=== PATIENT | female | born 1940 | race Caucasian/White ===

== ENCOUNTER 2022-11-29 10:24 | Outpatient (RCR) | payer SELFPAY | END 2023-11-29 16:25 | disposition home or self-care (01) | LOC: MOW 10:24 | PROVIDERS: PCP Family Medicine; Visit Provider Family Medicine | DX: Z76.0 Encounter for issue of repeat prescription (principal) | CPT/HCPCS: S5170 ==

== ENCOUNTER 2023-02-02 11:31 | Emergency (ER) | payer MEDICARE, BC, SELFPAY ==
[2023-02-02 11:42] VITALS: BP 160/71; PULSE 63; RESP 16; TEMP 36.3; O2SAT 98; BMI 32.5
--- NOTE | 2023-02-02 12:10 | ED.GENADULT ---
HPI - General Adult General Date Seen: 02/02/23 Chief complaint: Neuro Symptoms/Altered Deficit Stated complaint: weakness in upper left arm Time Seen by Provider: 02/02/23 11:34 Source: patient and family Mode of arrival: ambulatory Limitations: no limitations History of Present Illness HPI narrative: Patient is a very pleasant 83-year-old woman here with her daughter for evaluation of some intermittent weakness in her left upper arm. She has associated pain in her medial axilla, it is somewhat tender to push there although she does not feel any swelling or masses. She says that over the past week she has had difficulty putting on her bra on the usual way, fastening it behind her, and difficulty reaching for her seatbelt because she gets pain in that region. She also finds sometimes that the upper arm does not cooperate when she goes to pick something up. Right now she is not having as much trouble, but sometimes it is worse. She does not have problems with the distal arm, wrist, hand. Symptoms have been present for about a week, waxing and waning, not otherwise changing. They called the nurse line today and were advised to come in to rule out stroke. She denies trauma, fevers, difficulty breathing, cough are history of similar symptoms. No sensory changes. Related Data Home Medications Medication Instructions Recorded Confirmed buspirone 5 mg tablet 5 mg PO DAILY 02/02/23 02/02/23 citalopram 10 mg tablet 10 mg PO DAILY 02/02/23 02/02/23 furosemide 20 mg tablet 20 mg PO DAILY 02/02/23 02/02/23 losartan 25 mg tablet 25 mg PO DAILY 02/02/23 02/02/23 potassium chloride 8 mEq 8 meq PO DAILY 02/02/23 02/02/23 tablet,extended release pravastatin 40 mg tablet 40 mg PO DAILY 02/02/23 02/02/23 propranolol 20 mg tablet 20 mg PO BID 02/02/23 02/02/23 trazodone 50 mg tablet 25 mg PO QPM PRN 02/02/23 02/02/23 Allergies Allergy/AdvReac Type Severity Reaction Status Date / Time No Known Drug Allergies Allergy Verified 02/02/23 11:46 Review of Systems Status of ROS: Reports: 10 or more systems reviewed and unremarkable except as noted in History and below PFSH PFS Social History Smoking Status: Never smoker How often do you have a drink containing alcohol: never AUDIT-C Alcohol total score: 0 Non-prescribed substance use: denies use Exam Narrative: Exam Narrative: Vital signs as noted above. In general, an alert, well-appearing Elderly woman. Head: Normocephalic, atraumatic. Eyes: Pupils are equal reactive. Extraocular movements are full. Conjunctivae are normal. ENT: Mucous membranes are moist. Throat is normal. Neck: Supple without lymphadenopathy. Heart: Regular rate and rhythm. No murmur or rub. Lungs: Clear bilaterally. No increased work of breathing, crackles or wheezes. She has some tenderness over the lateral chest wall and axilla on the left, but I do not see any swelling or erythema, I do not feel any masses. Abdomen: Soft and nontender. No organomegaly. Extremities: Well perfused. No edema. No calf tenderness. Pulses intact. She has some limited internal rotation of the left shoulder secondary to pain, otherwise range of motion is full. Neurologic: Patient is alert and oriented to person and place. Speech is fluent. Face is symmetric. She has 5 of 5 strength throughout both upper extremities with the exception of deltoid function on the left which is just slightly weak compared to the right, but she is able to keep the arm up against resistance. Sensation is intact throughout. Bilateral lower extremities are normal. Affect: Normal. Skin: Warm and dry. Well perfused. Const: Vital Signs, click to edit/add: Vital Signs - 24 hr 02/02/23 11:42 Temperature 97.4 F L Pulse Rate [Left P ulse Oximeter] 63 Respiratory Rate 16 Blood Pressure [Ri ght Upper Arm] 160/71 H Pulse Oximetry 98 Oxygen Delivery Me thod Room Air Documenting provider has reviewed patient's vital signs: yes Course Course Hospital Course: Based on her symptoms and exam, I am not significantly suspicious of stroke as a cause for her symptoms. She has waxing and waning symptoms, with her only exam finding being that of very minimal weakness of the deltoid. This seems more likely to be related possibly to something going on the brachial plexus or peripheral nerves. I offered a CT scan of the chest to evaluate for anything that might be visible causing problems, but she would prefer to wait until she sees her primary doctor next week. Overall I think that is reasonable. Discussed reasons to come back, for instance if symptoms are worsening or she has new symptoms such as swelling, fever, severe pain, difficulty breathing etcetera. She and her daughter comfortable with that plan. Vital Signs Vital signs: Initial Vital Signs Temperature 97.4 F L 02/02/23 11:42 Temperature Source Temporal Artery Scan 02/02/23 11:42 Pulse Rate 63 02/02/23 11:42 Respiratory Rate 16 02/02/23 11:42 Blood Pressure 160/71 H 02/02/23 11:42 Blood Pressure Mean 100 02/02/23 11:42 Blood Pressure Position Sitting 02/02/23 11:42 Pulse Oximetry 98 02/02/23 11:42 Oxygen Delivery Method Room Air 02/02/23 11:42 Vital Signs Temperature 97.4 F L 02/02/23 11:42 Pulse Rate 63 02/02/23 11:42 Respiratory Rate 16 02/02/23 11:42 Blood Pressure 160/71 H 02/02/23 11:42 Pulse Oximetry 98 02/02/23 11:42 Oxygen Delivery Method Room Air 02/02/23 11:42 Temperature 97.4 F L 02/02/23 11:42 Pulse Rate 63 02/02/23 11:42 Respiratory Rate 16 02/02/23 11:42 Blood Pressure 160/71 H 02/02/23 11:42 Pulse Oximetry 98 02/02/23 11:42 Oxygen Delivery Method Room Air 02/02/23 11:42 Discharge Plan Discharge Clinical Impression: Muscle weakness of left upper extremity Patient Disposition: Home, Self-Care Condition: Stable Additional Instructions: follow-up with Dr. Quiñones this coming week as planned. If at any time you feel that symptoms are worsening, have more diffuse weakness, worsening pain, swelling, fevers, difficulty breathing or other acute changes, return to the emergency department. Prescriptions: No Action buspirone 5 mg tablet 5 mg PO DAILY trazodone 50 mg tablet 25 mg PO QPM PRN pravastatin 40 mg tablet 40 mg PO DAILY citalopram 10 mg tablet 10 mg PO DAILY potassium chloride 8 mEq tablet extended release 8 meq PO DAILY losartan 25 mg tablet 25 mg PO DAILY furosemide 20 mg tablet 20 mg PO DAILY propranolol 20 mg tablet 20 mg PO BID Follow Up/Referrals: Kerwin Quiñones MD [Primary Care Provider] - Stand Alone Forms: [facility] Info Instructions
== END 2023-02-02 12:38 | disposition home or self-care (01) ==
LOC: ED 12:29
PROVIDERS: Emergency Provider Emergency Medicine; PCP Family Medicine
DX: M62.81 Muscle weakness (generalized) (principal)
CPT/HCPCS: 99283; 99284

== ENCOUNTER 2023-10-30 18:12 | Observation (INO) | payer MEDICARE, BC, SELFPAY ==
[2023-10-30] VITALS (14 sets, daily range): BP systolic 136–183; BP diastolic 59–89; PULSE 67–78; RESP 18; TEMP 36.4–36.6; O2SAT 91–100; BMI 29.9; BMI 30.8
--- NOTE | 2023-10-30 19:47 | CT_ITS ---
Patient: ISABEL BOB Facility:?[facility] Patient ID:?[id number] Site Patient ID:?[id number] Site :?[id number] Study:?CT-Head WITHOUT-10/30/2023 8:21:27 PM Ordering Physician:JEAN Final Report: INDICATIONS: Altered mental status. TECHNIQUE: CT head without contrast. COMPARISON: CT head without contrast 10/19/2012. FINDINGS: Ventricular catheter via a right frontal approach with tip terminating near the midline is again demonstrated. The tip of the shunt catheter is slightly retracted from the septum pellucidum since the comparison exam. Ventricular size has also slightly increased. Generalized volume loss is similar. Ill-defined low-attenuation in the periventricular and subcortical white matter is unchanged. No CT evidence of acute hemorrhage or infarction. No midline shift. No abnormal subdural collection. Intracranial atherosclerosis. Bone windows show no acute or suspicious osseous abnormality. Paranasal sinuses and orbits as imaged are unremarkable. IMPRESSION: 1. Ventricular catheter via a right frontal approach is similar in appearance but is no longer in contact with the septum pellucidum. Ventricular size has also slightly increased, concerning for possible shunt dysfunction. Correlation with more recent head CT may prove useful, if available. 2. No acute intracranial hemorrhage or midline shift. 3. Generalized cerebral atrophy and changes of chronic small vessel ischemic disease, as before. Dictated by Titus Berg MD @ 10/30/2023 8:39:02 PM Please note that all CT scans at this facility use dose modulation, iterative reconstruction, and/or weight-based dosing when appropriate to reduce radiation dose to as low as reasonably achievable. Dictated by: Titus Berg MD @ 10/30/2023 20:40:50 Signed by:?Titus Berg MD @10/30/2023 8:40:50 PM (Electronic Signature)
--- NOTE | 2023-10-30 20:01 | ED_ITS ---
HPI - General Adult General Date Seen: 10/30/23 Chief complaint: Weakness Stated complaint: Dizzy, weakness Time Seen by Provider: 10/30/23 19:37 Source: patient and family (Daughter) Mode of arrival: ambulatory Limitations: no limitations History of Present Illness HPI narrative: Patient is an 83-year-old female presenting to the emergency department for difficulty concentrating. She states all day she has been feeling like she has been having a brain fog. Can seem to concentrate or anything. Is having difficulty giving further description of her symptoms. Is having some mild dizz iness. Does states she has been feeling fatigued but has been walking around normally all day using her cane. Has not noticed any weakness at this time. Does states she feels fatigued though. The COVID test this morning that was negative. Does have some visual disturbances of the left eye but this is a chronic issue that has been gradually getting worse that she is seeing someone for. Has not noticed any acute changes today. Denies any falls or head injuries. Denies chest pain, shortness of breath, numbness, chest pain, shortness of breath, abdominal pain, dysuria, fevers, chills. She has had a shot for the past 20 years and has had no issues with it. Initially placed for hydrocephalus and was having an unsteady gait at that time. States these symptoms are different. Related Data Home Medications Medication Instructions Recorded Confirmed buspirone 5 mg tablet 5 mg PO DAILY 02/02/23 02/02/23 citalopram 10 mg tablet 10 mg PO DAILY 02/02/23 02/02/23 furosemide 20 mg tablet 20 mg PO DAILY 02/02/23 02/02/23 losartan 25 mg tablet 25 mg PO DAILY 02/02/23 02/02/23 potassium chloride 8 mEq 8 meq PO DAILY 02/02/23 02/02/23 tablet,extended release pravastatin 40 mg tablet 40 mg PO DAILY 02/02/23 02/02/23 propranolol 20 mg tablet 20 mg PO BID 02/02/23 02/02/23 trazodone 50 mg tablet 25 mg PO QPM PRN 02/02/23 02/02/23 Allergies Allergy/AdvReac Type Severity Reaction Status Date / Time No Known Drug Allergies Allergy Verified 02/02/23 11:46 Review of Systems Status of ROS: Reports: 10 or more systems reviewed and unremarkable except as noted in History and below [facility] Social History Smoking Status: Never smoker Do you use any of these nicotine containing products: None How often do you have a drink containing alcohol: never How often do you have six or more drinks on one occasion: Never AUDIT-C Alcohol total score: 0 Non-prescribed substance use: denies use service: No Exam Narrative: Exam Narrative: Const: Well-nourished, Well-developed, in no distress Eyes: PERRL, no conjunctival injection, and symmetrical lids HENT: Atraumatic external nose and ears. Moist mucous membranes. Neck: Symmetric, trachea midline, No thyromegaly. CVS: RRR, No murmurs or gallops. Peripheral pulses 2+ and equal in all extremities RESP: Unlabored respiratory effort. Clear to auscultation bilaterally. GI: Nontender/Nondistended, No rebound or guarding. MSK:Extremities w/o deformity, Normal Active ROM Skin: Warm, Dry. No rashes or lesions. Neuro: Normal Muscle tone, Cranial nerves 2-12 grossly intact, normal [id number], normal [id number], normal gait, normal strength 5/5 upper lower extremities bilaterally, normal sensation upper and lower extremities bilaterally, normal rapid alternating movements. Psych: Awake, Alert, & Oriented x3. Appropriate mood and affect. Const: Vital Signs, click to edit/add: Vital Signs - 24 hr 10/30/23 18:20 10/30/23 19:28 10/30/23 19:30 Temperature 97.9 F Pulse Rate 76 72 Respiratory Rate 18 Blood Pressure Blood Pressure [Ri ght Upper Arm] 169/74 H Pulse Oximetry 97 96 96 Oxygen Delivery Me thod Room Air 10/30/23 19:32 10/30/23 19:45 10/30/23 20:00 Temperature Pulse Rate 68 75 69 Respiratory Rate 18 Blood Pressure 161/68 H Blood Pressure [Ri ght Upper Arm] Pulse Oximetry 96 98 97 Oxygen Delivery Me thod Room Air 10/30/23 20:02 10/30/23 20:26 10/30/23 20:32 Temperature Pulse Rate 68 67 67 Respiratory Rate Blood Pressure 154/67 H 156/71 H Blood Pressure [Ri ght Upper Arm] Pulse Oximetry 97 97 100 Oxygen Delivery Me thod Course Vital Signs Vital signs: Initial Vital Signs Temperature 97.9 F 10/30/23 18:20 Temperature Source Temporal Artery Scan 10/30/23 18:20 Pulse Rhythm Regular 10/30/23 18:20 Respiratory Rate 18 10/30/23 18:20 Blood Pressure 169/74 H 10/30/23 18:20 Blood Pressure Mean 105 10/30/23 18:20 Blood Pressure Position Sitting 10/30/23 18:20 Pulse Oximetry 97 10/30/23 18:20 Oxygen Delivery Method Room Air 10/30/23 18:20 Vital Signs Temperature 97.9 F 10/30/23 18:20 Respiratory Rate 18 10/30/23 18:20 Blood Pressure 169/74 H 10/30/23 18:20 Pulse Oximetry 97 10/30/23 18:20 Oxygen Delivery Method Room Air 10/30/23 18:20 Temperature 97.9 F 10/30/23 18:20 Pulse Rate 67 10/30/23 20:32 Respiratory Rate 18 10/30/23 19:32 Blood Pressure 156/71 H 10/30/23 20:32 Pulse Oximetry 100 10/30/23 20:32 Oxygen Delivery Method Room Air 10/30/23 19:32 Medical Decision Making MDM Narrative Medical decision making narrative: Patient is an 83-year-old female presenting to the emergency department for some difficulty concentrating. She is having difficulty explaining exactly what her symptoms are but does seems like the main 1 is concentration at this time. She is not having any difficulty walking and is otherwise acting normal according to her daughter. 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 Was placed at [facility] she states. We will do a CT scan of her head along with this CBC, CMP, COVID/flu/RSV, magnesium, urinalysis, EKG, troponin. CBC, CMP showed no concerning abnormalities. COVID/flu/RSV is negative. Point of care troponin was elevated 0.09 so I will do a lab draw a troponin which came back at 0.08. EKG is not having any abnormalities on it per my review. She is not having any chest pain instead they are only symptoms still is the brain fog. CT scan of the head return with concerns about shunt dysfunction. I spoke to Dr. Fuentes of [facility] about this and told her what the final read said, the patient's symptoms, the comparison CT. At this time she does not think this is of concern and patient can follow-up outpatient for it. Due to the elevated troponin that we will admit her to the hospitalist service. Patient is agreeable to this plan. Lab Data Labs: Lab Results 10/30/23 10/30/23 10/30/23 Range/Units 19:55 20:20 20:36 WBC 7.84 (4.50-11.00) K/uL RBC 3.85 L (4.00-5.20) m/uL Hgb 11.8 L (12.0-16.0) gm/dL Hct 36.6 (33.0-51.0) % MCV 95 (80-100) fL MCH 31 (26-34) pg MCHC 32 (32-36) gm/dL RDW Coeff of Susan 13.0 (11.5-15.5) % Plt Count 266 (140-440) K/uL Neut % (Auto) 70.6 (42.0-72.0) % Lymph % (Auto) 16.3 L (20-44) % Candler % (Auto) 9.8 (0.0-11.0) % Eos % (Auto) 2.4 (0.0-7.0) % Baso % (Auto) 0.8 (0.0-3.0) % Neut # (Auto) 5.53 (1.7-7.0) K/uL Lymph # (Auto) 1.30 (0.90-2.90) K/uL Candler # (Auto) 0.80 (0.00-0.90) K/UL Eos # (Auto) 0.19 (0.00-0.50) K/uL Baso # (Auto) 0.06 (0.00-0.30) K/uL Abs Immat Gran (auto) 0.01 (0.00-0.30) K/uL Imm/Tot Granulo (auto) 0.1 % Sodium 135 (135-149) mmol/L Potassium 4.4 (3.6-5.1) mmol/L Chloride 105 (96-114) mmol/L Carbon Dioxide 24 (20-32) mmol/L Anion Gap 6 L (7-15) mEq/L BUN 38 H (7-30) mg/dL Creatinine 1.2 (0.5-1.5) mg/dL Estimated Creat Clear 25.86 Estimated GFR 44 ml/min Glucose 96 (60-115) mg/dL Calcium 9.7 (8.4-10.6) mg/dL Magnesium 2.1 (1.5-2.6) mg/dL Total Bilirubin 0.5 (0.1-1.5) mg/dL AST 27 (12-35) U/L ALT 18 (4-35) U/L Alkaline Phosphatase 70 (40-150) U/L Troponin I 0.08 H* (0.01-0.04) ng/mL Total Protein 7.1 (6.0-8.3) g/dL Albumin 4.3 (3.3-5.0) g/dL SARS-CoV-2 (PCR) Negative SARS-CoV-2 (Negative) Influenza Type A (PCR) Negative PCR FLU A (Negative) Influenza Type B (PCR) Negative PCR FLU B (Negative) RSV (PCR) Negative PCR RSV (Negative) Lab Acknowledgement Test Added POC Troponin I 0.09 H (0.01-0.04) ng/ml Imaging Data CT scan - head: Attestation: I have reviewed the pertinent imaging results. Radiologist's impression: 1. Ventricular catheter via a right frontal approach is similar in appearance but is no longer in contact with the septum pellucidum. Ventricular size has also slightly increased, concerning for possible shunt dysfunction. Correlation with more recent head CT may prove useful, if available. 2. No acute intracranial hemorrhage or midline shift. 3. Generalized cerebral atrophy and changes of chronic small vessel ischemic disease, as before. Dictated by Titus Berg MD @ 10/30/2023 8:39:02 PM Please note that all CT scans at this facility use dose modulation, iterative reconstruction, and/or weight-based dosing when appropriate to reduce radiation dose to as low as reasonably achievable. Dictated by: Titus Berg MD @ 10/30/2023 20:40:50 ECG Data Attestation: I personally reviewed and interpreted this ECG as follows: Prior ECG tracings: not available for review Interpretation: Normal sinus rhythm Lasix 9 beats per minute, normal intervals, normal axis, no ST or T-wave abnormalities. There are some says slightly inverted T-waves in lead III but this can be normal and did not have any comparisons. Discharge Plan Discharge Clinical Impression: Elevated troponin Patient Disposition: Admitted As Observation Condition: Stable
[2023-10-30 20:12] LABS: Basophils Absolute Auto 0.06 K/uL (0.00-0.30); Basophils Percent Auto 0.8 % (0.0-3.0); Eosinophils Absolute Auto 0.19 K/uL (0.00-0.50); Eosinophils Percent Auto 2.4 % (0.0-7.0); Hematocrit 36.6 % (33.0-51.0); Hemoglobin* 11.8 gm/dL (12.0-16.0); Immature Granulocytes Abs Auto 0.01 K/uL (0.00-0.30); Immature Granulocytes Pct Auto 0.1 %; Lymphocytes Percent Auto 16.3 % (20-44); Mean Corpuscular HGB Conc 32 gm/dL (32-36); Mean Corpuscular Hemoglobin 31 pg (26-34); Mean Corpuscular Volume 95 fL (80-100); Monocytes Percent Auto 9.8 % (0.0-11.0); Neutrophils Absolute Auto 5.53 K/uL (1.7-7.0); Neutrophils Percent Auto 70.6 % (42.0-72.0); Platelet Count* 266 K/uL (140-440); Red Blood Count 3.85 m/uL (4.00-5.20); Slide Review Reflex No; White Blood Count* 7.84 K/uL (4.50-11.00)
[2023-10-30 20:24] LABS: Albumin* 4.3 g/dL (3.3-5.0)
[2023-10-30 20:25] LABS: Chloride* 105 mmol/L (96-114); Potassium* 4.4 mmol/L (3.6-5.1); Sodium* 135 mmol/L (135-149)
[2023-10-30 20:26] LABS: Troponin, Point-of-Care* 0.09 ng/ml (0.01-0.04)
[2023-10-30 20:27] LABS: Anion Gap 6 mEq/L (7-15); Aspartate Amino Transferase* 27 U/L (12-35); Bilirubin Total* 0.5 mg/dL (0.1-1.5); Carbon Dioxide* 24 mmol/L (20-32); Creatinine* 1.2 mg/dL (0.5-1.5); Est. Creatinine Clearance* 25.86; Estimated Glomerular Filt Rate 44 ml/min; Total Protein* 7.1 g/dL (6.0-8.3)
[2023-10-30 20:28] LABS: Alanine Aminotransferase* 18 U/L (4-35); Alkaline Phosphatase* 70 U/L (40-150); Blood Urea Nitrogen* 38 mg/dL (7-30); Calcium* 9.7 mg/dL (8.4-10.6); Glucose* 96 mg/dL (60-115); Magnesium* 2.1 mg/dL (1.5-2.6)
[2023-10-30 21:00] LABS: Troponin I* 0.08 ng/mL (0.01-0.04)
[2023-10-30 21:04] LABS: PCR FLU A Negative PCR FLU A (Negative); PCR FLU B Negative PCR FLU B (Negative); PCR RSV Negative PCR RSV (Negative); SARS PCR* Negative SARS-CoV-2 (Negative)
--- NOTE | 2023-10-30 22:41 | P.IMHP_ITS ---
Hospitalist- H&P: HPI History of Present Illness Date Seen: 10/30/23 Chief complaint: Dizzy, weakness Narrative: Pily Sutherland is a 83 year old female who presented to the ER with her daughter Maribel this evening for brain fog. She is having a difficult time articulating symptoms, but overall feels like she's unable to concentrate. Mild dizziness but different than previous episodes of vertigo. Vision feels off without any specific focal symptoms or visual field deficits. Energy on the low side. No headache. History of idiopathic NPH; had shunt placed in 2001. Negative COVID test at home. No recent illness or falls. Tried Loratadine in case these were sinus symptoms, no relief. No chest pain or difficulty breathing. No concerning LE edema (didn't take her morning Lasix because she was feeling poorly). No recent changes in medication or concerns of medication errors. She and daughter both endorse recent stressors; Court is also prone to anxiety, but it typically doesn't manifest with these symptoms. ER Course and Findings: - Hgb 11.8 (outpatient baseline 11-12) - Creatinine 1.2 (outpatient baseline 1.3-1.5) - reportedly normal EKG, troponin 0.08 - concern for possible LAP C[employer]PER[employer] shunt malfunction on head CT; ER physician reviewed with [facility] who compared imaging, did not think symptoms were c/w shunt malfunction. Outpatient f/u recommended Given patient's elevated troponin and symptoms, Court is admitted for monitoring and therapy evaluations. Review of Systems Narrative: - no recent falls - no dysuria or polyuria - no headache - tried a Loratadine earlier today (thinking symptoms could be related to allergies), no relief - no chest pain - no dyspnea [facility] Medical History (Updated 10/30/23 @ 23:15 by Angely Prieto MD) Anxiety ?F41.9 - Anxiety disorder, unspecified (ICD-10) Dysthymia ?F34.1 - Dysthymic disorder (ICD-10) Idiopathic normal pressure hydrocephalus (INPH) ?G91.2 - (Idiopathic) normal pressure hydrocephalus (ICD-10) Colonic polyp ?K63.5 - Polyp of colon (ICD-10) Benign positional vertigo ?H81.10 - Benign paroxysmal vertigo, unspecified ear (ICD-10) Essential hypertension ?I10 - Essential (primary) hypertension (ICD-10) Heart failure with preserved ejection fraction ?I50.30 - Unspecified diastolic (congestive) heart failure (ICD-10) Hyperlipidemia ?E78.5 - Hyperlipidemia, unspecified (ICD-10) Osteopenia ?M85.80 - Other specified disorders of bone density and structure, unspecified site (ICD-10) Surgical History (Updated 10/30/23 @ 22:49 by Angely Prieto MD) H/O cataract extraction ?Z98.49 - Cataract extraction status, unspecified eye (ICD-10) S/P arthroscopic knee surgery ?Z98.890 - Other specified postprocedural states (ICD-10) H/O ventral hernia repair ?Z98.890 - Other specified postprocedural states (ICD-10) ?Z87.19 - Personal history of other diseases of the digestive system (ICD-10) H/O spinal fusion ?Z98.1 - Arthrodesis status (ICD-10) Family History (Updated 10/30/23 @ 23:16 by Angely Prieto MD) Mother Macular degeneration Social History (Updated 10/30/23 @ 23:17 by Angely Prieto MD) Narrative: Lives independently in a [facility] in [place]. Uses a walker and cane at home to ambulate. 4 adult children, daughter Maribel would be MDM if needed. Nonsmoker, no ETOH use. Requests DNR/DNI status. What is your current living situation?: I presently have a place to live Problems where you live: no known problems Problems where you live details: n/a In the past 12 months, utilities in danger of being shut off: no In past 12 months, lack of transportation kept you from medical appts, meetings, work, or getting things needed for daily living: no In the past 12 mos, have been you worried that your food would run out before you had money to buy more?: never true In the past 12 mos, the food you bought just didn't last and you didn't have money to buy more?: never true Smoking Status: Never smoker Do you use any of these nicotine containing products: None How often do you have a drink containing alcohol: never How often do you have six or more drinks on one occasion: Never AUDIT-C Alcohol total score: 0 Non-prescribed substance use: denies use Caffeine: Yes (Coffee and diet pepsi) How often does anyone, including family, friends and others, physically hurt you : never How often does anyone, including family, friends and others, insult or talk down to you: never How often does anyone, including family, friends and others, threaten you with harm: never How often does anyone, including family, friends and others, scream or curse at you: never service: No Meds Home Medications and Allergies Home Medications Medication Instructions Recorded Confirmed Type buspirone 5 mg tablet 2.5 mg PO BID 02/02/23 10/30/23 History citalopram 10 mg tablet 10 mg PO DAILY 02/02/23 10/30/23 History furosemide 20 mg tablet 20 mg PO DAILY PRN 02/02/23 10/30/23 History losartan 25 mg tablet 12.5 mg PO BID 02/02/23 10/30/23 History pravastatin 40 mg tablet 40 mg PO DAILY 02/02/23 10/30/23 History propranolol 20 mg tablet 20 mg PO BID 02/02/23 10/30/23 History trazodone 50 mg tablet 25 mg PO QPM PRN 02/02/23 10/30/23 History Home Medication Comments: - no recent medication changes - takes furosemide prn - self manages medications, no concern from patient nor family members regarding any recent mistakes or missed medications Allergies Allergy/AdvReac Type Severity Reaction Status Date / Time No Known Drug Allergies Allergy Verified 02/02/23 11:46 Exam Narrative: Exam Narrative: GEN: Alert and oriented HEENT: PERRL and EOMIs bilaterally, no scleral icterus. Normal ROM of neck, tongue protrudes midline CV: RRR, No concerning murmurs, no carotid bruits R: LCTA bilaterally without concerning wheezing, air movement adequate Ext: wwp, trace BLE edema Skin: No concerning skin lesions or rashes on exposed skin Neuro: No focal deficits while laying in bed. Moves extremities x4 appropriately with normal sensation Psych: Appropriate Const: Vital Signs, click to edit/add: Vital Signs - 24 hr 10/30/23 18:20 10/30/23 19:28 10/30/23 19:30 Temperature 97.9 F Pulse Rate 76 72 Pulse Rate [Left] Respiratory Rate 18 Blood Pressure Blood Pressure [Le ft Arm] Blood Pressure [Ri ght Upper Arm] 169/74 H Pulse Oximetry 97 96 96 Oxygen Delivery Me thod Room Air 10/30/23 19:32 10/30/23 19:45 10/30/23 20:00 Temperature Pulse Rate 68 75 69 Pulse Rate [Left] Respiratory Rate 18 Blood Pressure 161/68 H Blood Pressure [Le ft Arm] Blood Pressure [Ri ght Upper Arm] Pulse Oximetry 96 98 97 Oxygen Delivery Me thod Room Air 10/30/23 20:02 10/30/23 20:26 10/30/23 20:32 Temperature Pulse Rate 68 67 67 Pulse Rate [Left] Respiratory Rate Blood Pressure 154/67 H 156/71 H Blood Pressure [Le ft Arm] Blood Pressure [Ri ght Upper Arm] Pulse Oximetry 97 97 100 Oxygen Delivery Me thod 10/30/23 21:00 10/30/23 21:01 10/30/23 21:15 Temperature Pulse Rate 67 67 70 Pulse Rate [Left] Respiratory Rate Blood Pressure 161/73 H Blood Pressure [Le ft Arm] Blood Pressure [Ri ght Upper Arm] Pulse Oximetry 98 96 95 Oxygen Delivery Me thod 10/30/23 21:40 10/30/23 21:40 Temperature 97.5 F L Pulse Rate Pulse Rate [Left] 78 Respiratory Rate 18 18 Blood Pressure Blood Pressure [Le ft Arm] 183/89 H Blood Pressure [Ri ght Upper Arm] Pulse Oximetry 95 95 Oxygen Delivery Me thod Room Air Room Air Hospitalist - H&P: Result Labs Labs: Short CBC 10/30/23 Range/Units 19:55 WBC 7.84 (4.50-11.00) K/uL Hgb 11.8 L (12.0-16.0) gm/dL Hct 36.6 (33.0-51.0) % Plt Count 266 (140-440) K/uL BMP 10/30/23 19:55 Sodium 135 Potassium 4.4 Chloride 105 Carbon Dioxide 24 BUN 38 H Creatinine 1.2 Glucose 96 Calcium 9.7 Cardiac Enzymes 10/30/23 Range/Units 19:55 Troponin I 0.08 H* (0.01-0.04) ng/mL Liver Function 10/30/23 Range/Units 19:55 Total Bilirubin 0.5 (0.1-1.5) mg/dL AST 27 (12-35) U/L ALT 18 (4-35) U/L Alkaline Phosphatase 70 (40-150) U/L Albumin 4.3 (3.3-5.0) g/dL Assessment and Plan Assessment and plan (1) Brain fog: Problem comment: - ddx: URI, atypical vertigo, LAP [employer] shunt malfunction, physical manifestation of anxiety, atypical NSTEMI, CVA - [facility] consulted by phone form ED; felt that shunt was not malfunctioning and recommended outpatient f/u - reassuring labs and exam - consider MRI pending clinical course - therapies ordered to evaluate tomorrow morning Status: Acute (2) Elevated troponin: Problem comment: - ddx: CHF exacerbation, NSTEMI, related to CKD (baseline GFR in 30s per chart review) - clinically appears euvolemic - trend troponin, follow telemetry, continue home medications - repeat TTE Status: Acute (3) Heart failure with preserved ejection fraction: Problem comment: - follows with Dr. Phillips at [facility] 02/09/2022 Final Impressions: 1. Normal LV size, normal wall thickness, normal global systolic function with an estimated EF of 60 - 65%. 2. Right ventricular cavity size is mildly enlarged, global systolic RV function is normal. 3. The aortic valve is trileaflet and sclerotic, no stenosis and mild regurgitation. 4. The mitral valve is normal, mild mitral regurgitation. 5. Mild-moderate tricuspid regurgitation. 6. The inferior vena cava is dilated, respiratory size variation less than 50%. Status: Acute (4) Essential hypertension: Problem comment: - typically has age appropriate control on Lasix, Losartan BID - also on Propranolol (for h/o essential tremor, not noted on admission) Status: Acute (5) Idiopathic normal pressure hydrocephalus (INPH): Problem comment: - shunt placed 2001 Status: Acute Plan - per above - patient requests DNR/DNI status, unsure at this time if she would want transfer to higher level of care facility - daughter Maribel updated at bedside, questions answered
[2023-10-30 23:05] LABS: Appearance Urine Cloudy (Clear); Bilirubin Urine Negative (Negative); Blood Urine Negative (Negative); Color Urine Yellow (Yellow); Glucose Urine Negative (Negative); Ketones Urine Negative (Negative); Leukocyte Esterase Urine 1+ (Negative); Nitrite Urine Positive (Negative); Protein Urine Negative (Negative); Urobilinogen Urine 0.2 (0.2-1.0); pH Urine 6.5 (5.0-8.5)
[2023-10-30 23:09] LABS: Bacteria Urine Many; RBC Urine 0-2 (0-2); Squamous Epithelial Cell Urine Few (None-Few)
[2023-10-30 23:22] LABS: Troponin I* 0.07 ng/mL (0.01-0.04)
[2023-10-30] MEDS: TRAZODONE HCL 50 MG TABLET 25 MG PO (23:47)
[2023-10-31] MEDS: cefTRIAXone 1 GM in 0.9 % SODIUM CHLORIDE Mini-bag 100 ML IVPB (00:18)
[2023-10-31] MEDS: 0.9 % SODIUM CHLORIDE 250 ml IV (00:19)
[2023-10-31 02:11] VITALS: BP 133/78; PULSE 69; RESP 18; TEMP 36.4; O2SAT 91
--- NOTE | 2023-10-31 05:38 | PC.NURSE ---
Shift note: Pt is doing well. Ambulated with SBA using cane. Alert and oriented. Pt is pleasant and cooperated with treatment and care. No fever and pain reported. Due treatment and charted as ordered.
[2023-10-31 06:41] LABS: Basophils Absolute Auto 0.06 K/uL (0.00-0.30); Basophils Percent Auto 0.9 % (0.0-3.0); Eosinophils Absolute Auto 0.21 K/uL (0.00-0.50); Eosinophils Percent Auto 3.1 % (0.0-7.0); Hematocrit 34.2 % (33.0-51.0); Immature Granulocytes Abs Auto 0.02 K/uL (0.00-0.30); Immature Granulocytes Pct Auto 0.3 %; Lymphocytes Absolute Auto 1.41 K/uL (0.90-2.90); Lymphocytes Percent Auto 20.9 % (20-44); Mean Corpuscular HGB Conc 32 gm/dL (32-36); Mean Corpuscular Hemoglobin 31 pg (26-34); Mean Corpuscular Volume 95 fL (80-100); Monocytes Percent Auto 9.5 % (0.0-11.0); Neutrophils Absolute Auto 4.41 K/uL (1.7-7.0); Neutrophils Percent Auto 65.3 % (42.0-72.0); Platelet Count* 259 K/uL (140-440); RDW Coefficient of Variation % 13.1 % (11.5-15.5); Red Blood Count 3.59 m/uL (4.00-5.20); White Blood Count* 6.75 K/uL (4.50-11.00)
[2023-10-31 06:48] LABS: Slide Review Reflex No
[2023-10-31 07:00] VITALS: BP 147/63; PULSE 76; RESP 18; TEMP 37.2; O2SAT 96
[2023-10-31 07:00] LABS: Chloride* 107 mmol/L (96-114); Sodium* 136 mmol/L (135-149)
[2023-10-31 07:01] LABS: Potassium* 4.1 mmol/L (3.6-5.1)
[2023-10-31 07:03] LABS: Creatinine* 1.1 mg/dL (0.5-1.5); Est. Creatinine Clearance* 39.92; Estimated Glomerular Filt Rate 49 ml/min
[2023-10-31 07:04] LABS: Anion Gap 3 mEq/L (7-15); Blood Urea Nitrogen* 30 mg/dL (7-30); Calcium* 9.3 mg/dL (8.4-10.6); Carbon Dioxide* 26 mmol/L (20-32); Glucose* 87 mg/dL (60-115)
[2023-10-31 07:12] LABS: Troponin I* 0.06 ng/mL (0.01-0.04)
[2023-10-31 07:15] VITALS: PULSE 71
[2023-10-31] MEDS: PRAVASTATIN SODIUM 20 MG TABLET 40 MG PO (08:41)
[2023-10-31] MEDS: CITALOPRAM HYDROBROMIDE 20 MG TABLET 10 MG PO (08:41)
[2023-10-31] MEDS: LOSARTAN POTASSIUM 50 MG TABLET 12.5 MG PO (08:42)
[2023-10-31] MEDS: ACETAMINOPHEN 325 MG TABLET 975 MG PO (08:42)
[2023-10-31] MEDS: PROPRANOLOL 20 MG TABLET PO (08:43)
[2023-10-31] MEDS: BUSPIRONE 10 MG TABLET 2.5 MG PO (08:43)
[2023-10-31] MEDS: SODIUM CHLORIDE 0.9 % (FLUSH) 10 ML SYRINGE 5 ML IVF (08:44)
--- NOTE | 2023-10-31 10:33 | PM.DS1 ---
DS: Providers Provider Date Seen: 10/31/23 Date of admission: 10/30/23 21:31 Primary care physician: Kerwin Quiñones MD Admitting Clinician: Joyce Martin MD Consults: 10/30/23 22:36 Consult to Physical Therapy [CONS] Routine Comment: Reason(s) for PT Consult:: Evaluate and Treat Any Restrictions?:: No Restrictions Consult to [facility] [CONS] Routine Comment: Reason for Consult:: Discharge Planning Needs 10/30/23 22:38 Consult to Occupational Therapy [CONS] Routine Comment: Reason(s) for OT Consult:: Evaluate and Treat Any Restrictions?:: No Restrictions Attending Physician on discharge: SARIAH Heredia, JANEC [facility] Date of Discharge: 10/31/23 DS: Diagnosis Discharge Diagnosis (1) Brain fog: Status: Resolved Problem details: Resolved prior to discharge Differential diagnoses included UTI, atypical vertigo, MOLDER PUNCH shunt malfunction, physical manifestation of anxiety, atypical NSTEMI, CVA - [facility] consulted by phone from ED; felt that shunt was not malfunctioning and recommended outpatient f/u. PT/OT consulted, no further acute therapies recommended, patient had returned to baseline prior to discharge to home. (2) UTI (urinary tract infection): Status: Acute Problem details: UA cloudy, positive nitrite,1+ LE, many bacteria. UC pending on day of discharge Initiated on ceftriaxone, transition to oral cefdinir on discharge (3) Elevated troponin: Status: Acute Problem details: Differential diagnoses included CHF exacerbation, NSTEMI, related to CKD (baseline GFR in 30s per chart review). Clinically appeared euvolemic. EKG read with inverted T-waves. Her troponins down trended, telemetry unremarkable. Previous echo 2021. Will need outpatient follow-up with PCP and echocardiogram (4) Heart failure with preserved ejection fraction: Status: Acute Problem details: - follows with Dr. Phillips at [facility] 02/09/2022 Final Impressions: 1. Normal LV size, normal wall thickness, normal global systolic function with an estimated EF of 60 - 65%. 2. Right ventricular cavity size is mildly enlarged, global systolic RV function is normal. 3. The aortic valve is trileaflet and sclerotic, no stenosis and mild regurgitation. 4. The mitral valve is normal, mild mitral regurgitation. 5. Mild-moderate tricuspid regurgitation. 6. The inferior vena cava is dilated, respiratory size variation less than 50%. (5) Essential hypertension: Status: Acute Problem details: - typically has age appropriate control on Lasix, Losartan BID - also on Propranolol (for h/o essential tremor, not noted on admission) (6) Idiopathic normal pressure hydrocephalus (INPH): Status: Acute Problem details: - shunt placed 2001 DS: Summary Hospital Course Hospital Course: [age] year old female past medical history significant for hypertension, heart failure with preserved ejection fraction, idiopathic normal pressure hydrocephalus status post MOLDER PUNCH shunt was admitted to the medical floor for further management suspected UTI. Course of care and details as noted above. Patient was initiated on ceftriaxone, transitioned to oral cefdinir on day of discharge. Urine culture pending. Will need outpatient follow-up with PCP and repeat echocardiogram for further workup elevated troponins. Will need outpatient neurology follow-up for MOLDER PUNCH shunt. Remainder of chronic medical comorbidities were monitored and managed with home medications. Status at Discharge Functional status at discharge: uses cane/walker Overall status at discharge: patient is back to baseline Time Spent with Patient Time attestation: Total time spent providing and/or coordinating discharge services: Time spent: Greater than 30 minutes Exam Narrative: Exam Narrative: PHYSICAL EXAM General: Pleasant, conversant, NAD Cardiovascular: RRR Pulmonary: No dyspnea Neurological: Alert, answering questions appropriately Skin: Warm, dry. Const: Vital Signs, click to edit/add: Vital Signs - 24 hr 10/30/23 18:20 10/30/23 19:28 10/30/23 19:30 Temperature 97.9 F Pulse Rate 76 72 Pulse Rate [Left] Respiratory Rate 18 Blood Pressure Blood Pressure [Le ft Arm] Blood Pressure [Ri ght Upper Arm] 169/74 H Pulse Oximetry 97 96 96 Oxygen Delivery Me thod Room Air 10/30/23 19:32 10/30/23 19:45 10/30/23 20:00 Temperature Pulse Rate 68 75 69 Pulse Rate [Left] Respiratory Rate 18 Blood Pressure 161/68 H Blood Pressure [Le ft Arm] Blood Pressure [Ri ght Upper Arm] Pulse Oximetry 96 98 97 Oxygen Delivery Me thod Room Air 10/30/23 20:02 10/30/23 20:26 10/30/23 20:32 Temperature Pulse Rate 68 67 67 Pulse Rate [Left] Respiratory Rate Blood Pressure 154/67 H 156/71 H Blood Pressure [Le ft Arm] Blood Pressure [Ri ght Upper Arm] Pulse Oximetry 97 97 100 Oxygen Delivery Me thod 10/30/23 21:00 10/30/23 21:01 10/30/23 21:15 Temperature Pulse Rate 67 67 70 Pulse Rate [Left] Respiratory Rate Blood Pressure 161/73 H Blood Pressure [Le ft Arm] Blood Pressure [Ri ght Upper Arm] Pulse Oximetry 98 96 95 Oxygen Delivery Me thod 10/30/23 21:40 10/30/23 21:40 10/30/23 23:00 Temperature 97.5 F L Pulse Rate Pulse Rate [Left] 78 73 Respiratory Rate 18 18 18 Blood Pressure Blood Pressure [Le ft Arm] 183/89 H Blood Pressure [Ri ght Upper Arm] Pulse Oximetry 95 95 [facility] Room Air 10/30/23 23:00 10/30/23 23:00 10/30/23 23:00 Temperature 97.5 F L Pulse Rate 74 Pulse Rate [Left] 73 Respiratory Rate 18 18 Blood Pressure Blood Pressure [Le ft Arm] 136/59 L Blood Pressure [Ri ght Upper Arm] Pulse Oximetry 91 91 [facility]xygen [facility] Room Air 10/31/23 02:11 10/31/23 07:00 10/31/23 07:00 Temperature 97.5 F L 99.0 F Pulse Rate Pulse Rate [Left] 69 76 76 Respiratory Rate 18 18 18 Blood Pressure Blood Pressure [Le ft Arm] 133/78 147/63 H Blood Pressure [Ri ght Upper Arm] Pulse Oximetry 91 96 [facility] Room Air 10/31/23 07:00 Temperature Pulse Rate Pulse Rate [Left] Respiratory Rate 18 Blood Pressure Blood Pressure [Le ft Arm] Blood Pressure [Ri ght Upper Arm] Pulse Oximetry 96 Oxygen Delivery Me od Room Air DS: Data Data Completed and Pending Completed studies during hospitalization: CT head without contrast 10/19/2012. FINDINGS: Ventricular catheter via a right frontal approach with tip terminating near the midline is again demonstrated. The tip of the shunt catheter is slightly retracted from the septum pellucidum since the comparison exam. Ventricular size has also slightly increased. Generalized volume loss is similar. Ill-defined low-attenuation in the periventricular and subcortical white matter is unchanged. No CT evidence of acute hemorrhage or infarction. No midline shift. No abnormal subdural collection. Intracranial atherosclerosis. Bone windows show no acute or suspicious osseous abnormality. Paranasal sinuses and orbits as imaged are unremarkable. IMPRESSION: 1. Ventricular catheter via a right frontal approach is similar in appearance but is no longer in contact with the septum pellucidum. Ventricular size has also slightly increased, concerning for possible shunt dysfunction. Correlation with more recent head CT may prove useful, if available. 2. No acute intracranial hemorrhage or midline shift. 3. Generalized cerebral atrophy and changes of chronic small vessel ischemic disease, as before. Pending studies at discharge: Urine culture Labs on day of discharge: Labs from last 24 hours 10/31/23 10/30/23 10/30/23 06:08 22:50 22:40 WBC 6.75 RBC 3.59 L Hgb 11.0 L Hct 34.2 MCV 95 MCH 31 MCHC 32 RDW Coeff of Susan 13.1 Plt Count 259 Neut % (Auto) 65.3 Lymph % (Auto) 20.9 Isabela % (Auto) 9.5 Eos % (Auto) 3.1 Baso % (Auto) 0.9 Neut # (Auto) 4.41 Lymph # (Auto) 1.41 Isabela # (Auto) 0.60 Eos # (Auto) 0.21 Baso # (Auto) 0.06 Abs Immat Gran (auto) 0.02 Imm/Tot Granulo (auto) 0.3 Sodium 136 Potassium 4.1 Chloride 107 Carbon Dioxide 26 Anion Gap 3 L BUN 30 Creatinine 1.1 Estimated Creat Clear 39.92 Estimated GFR 49 Glucose 87 Calcium 9.3 Magnesium Total Bilirubin AST ALT Alkaline Phosphatase Troponin I 0.06 H* 0.07 H* Total Protein Albumin Urine Color Yellow Urine Appearance Cloudy A Urine pH 6.5 Ur Specific [place] 1.020 Urine Protein Negative Urine Glucose (UA) Negative Urine Ketones Negative Urine Blood Negative Urine Nitrite Positive A Urine Bilirubin Negative Urine Urobilinogen 0.2 Ur Leukocyte Esterase 1+ A Urine RBC 0-2 Urine WBC 10-25 A Ur Squamous Epith Cells Few Urine Bacteria Many A SARS-CoV-2 (PCR) Influenza Type A (PCR) Influenza Type B (PCR) RSV (PCR) Lab Acknowledgement POC Troponin I 10/30/23 10/30/23 10/30/23 20:36 20:20 19:55 WBC 7.84 RBC 3.85 L Hgb 11.8 L Hct 36.6 MCV 95 MCH 31 MCHC 32 RDW Coeff of Susan 13.0 Plt Count 266 Neut % (Auto) 70.6 Lymph % (Auto) 16.3 L Isabela % (Auto) 9.8 Eos % (Auto) 2.4 Baso % (Auto) 0.8 Neut # (Auto) 5.53 Lymph # (Auto) 1.30 Isabela # (Auto) 0.80 Eos # (Auto) 0.19 Baso # (Auto) 0.06 Abs Immat Gran (auto) 0.01 Imm/Tot Granulo (auto) 0.1 Sodium 135 Potassium 4.4 Chloride 105 Carbon Dioxide 24 Anion Gap 6 L BUN 38 H Creatinine 1.2 Estimated Creat Clear 25.86 Estimated GFR 44 Glucose 96 Calcium 9.7 Magnesium 2.1 Total Bilirubin 0.5 AST 27 ALT 18 Alkaline Phosphatase 70 Troponin I 0.08 H* Total Protein 7.1 Albumin 4.3 Urine Color Urine Appearance Urine pH Ur Specific [place] Urine Protein Urine Glucose (UA) Urine Ketones Urine Blood Urine Nitrite Urine Bilirubin Urine Urobilinogen Ur Leukocyte Esterase Urine RBC Urine WBC Ur Squamous Epith Cells Urine Bacteria SARS-CoV-2 (PCR) Negative SARS-CoV-2 Influenza Type A (PCR) Negative PCR FLU A Influenza Type B (PCR) Negative PCR FLU B RSV (PCR) Negative PCR RSV Lab Acknowledgement Test Added POC Troponin I 0.09 H Preliminary micro results at discharge 10/30/23 Unknown Urine Culture - Preliminary Urine,Clean Catch Culture in Progress Discharge Plan Discharge Disposition: Home, Self-Care Date of Admission: 10/30/23 21:31 Attending Provider on Discharge: Chandrika Juan Primary Care Provider: Kerwin Quiñones Condition: Stable Anticipated Discharge Date/Time: 10/31/23 10:26 Discharge Medications: New cefdinir 300 mg capsule 300 mg PO BID Qty: 10 0RF Continued buspirone 5 mg tablet 2.5 mg PO BID trazodone 50 mg tablet 25 mg PO QPM PRN pravastatin 40 mg tablet 40 mg PO DAILY citalopram 10 mg tablet 10 mg PO DAILY losartan 25 mg tablet 12.5 mg PO BID furosemide 20 mg tablet 20 mg PO DAILY PRN propranolol 20 mg tablet 20 mg PO BID Discharge Orders: Discharge Order (Routine); Ordered 10/31/23 Ordered By: Chandrika Juan Patient Education: Urinary Tract Infection in Older Adults (GEN), High Troponin Levels (GEN) Additional Instructions: Continue cefdinir for your urinary tract infection. A urine culture was pending on day of discharge. Your troponin level was elevated. You will need an outpatient echocardiogram and follow-up with your PCP. Neurology recommending outpatient follow-up for MOLDER PUNCH shunt. Activity Level: No Restrictions Discharge Diet: Regular Follow Up Appointments: Kerwin Quiñones MD [Primary Care Provider] - 11/08/23 (Post hospital follow-up, UTI. Will need outpatient echocardiogram and PCP follow-up for elevated troponins) Forms: [employer] Info Instructions
--- NOTE | 2023-10-31 11:18 | REH.OT ---
Orders received for OT eval and treat. Patient back to baseline and is discharging to home. No formal OT evaluation needed.
--- NOTE | 2023-10-31 11:29 | NUTR.NU ---
Nutrition screen initiated related to nursing referral for MST due to weight loss. Height 59, weight 149.1 lbs, BMI 30.8. 02/02/23 weight record 150 lbs. Patient admit with brain fog, UTI. Diet order regular with intake of 100% at breakfast. No nutrition concerns at this time. Monitor intake and follow up prn.
--- NOTE | 2023-10-31 14:43 | PC.NURSE ---
Discharge: Patient pleasant and cooperative, A&O. VSS, afebrile. SpO2 maintained above 90% on room air, LS CTA. Patient reported chronic moderate pain in her back, managed with Tylenol. Outpatient echo, and follow up appointment scheduled. IV D/C with tip intact. Discharge instructions provided verbally and written, all questions answered. Discharged at 1155 with daughter to home. ?
== END 2023-10-31 11:55 | disposition home or self-care (01) ==
LOC: ED 20:13 → MEDSURG 21:36
PROVIDERS: Family Medicine; Admitting Provider Family Medicine; Emergency Provider Student in an Organized Health Care Education/Training Program; PCP Family Medicine; Visit Provider Family Medicine
DX: R79.89 Other specified abnormal findings of blood chemistry (principal); N39.0 Urinary tract infection, site not specified; R41.89 Other symptoms and signs involving cognitive functions and awareness; I11.0 Hypertensive heart disease with heart failure; I50.30 Unspecified diastolic (congestive) heart failure; G91.2 (Idiopathic) normal pressure hydrocephalus; I07.1 Rheumatic tricuspid insufficiency; I34.0 Nonrheumatic mitral (valve) insufficiency; R42 Dizziness and giddiness; R53.83 Other fatigue; H53.9 Unspecified visual disturbance; F41.9 Anxiety disorder, unspecified; E78.5 Hyperlipidemia, unspecified; Z11.52 Encounter for screening for COVID-19; Z98.2 Presence of cerebrospinal fluid drainage device; Z98.1 Arthrodesis status; Z98.49 Cataract extraction status, unspecified eye; Z87.19 Personal history of other diseases of the digestive system; Z98.890 Other specified postprocedural states; Z66 Do not resuscitate
CPT/HCPCS: 36415; 70450; 80048; 80053; 81001; 83735; 84484; 85025; 87086; 87186; 87631; 93005; 96365; 96366; 97116; 97161; 99283; 99285; G0378; A9270; J0696; J7050

== ENCOUNTER 2023-11-03 14:31 | Emergency (ER) | payer MEDICARE, BC, SELFPAY ==
[2023-11-03 14:39] VITALS: BP 165/71; PULSE 61; RESP 18; TEMP 37.2; O2SAT 98; BMI 29.9
[2023-11-03 16:38] VITALS: O2SAT 98
--- NOTE | 2023-11-03 16:38 | CT_ITS ---
Patient: ISABEL BOB Facility:?[facility] Patient ID:?[id number] Site Patient ID:?[id number]. Site :?[id number] Study:?CT-Head WITHOUTT-11/03/2023 4:57:04 PM Ordering Physician:?DR. DAMICO Final Report: INDICATION: Confusion. COMPARISON: CT head without contrast October 19, 2012 and October 30, 2023. TECHNIQUE: CT head without intravenous contrast; coronal and sagittal reformats. FINDINGS: Hydrocephalus with ventricular shunt in place. Progression of hydrocephalus since 2012 and stable since October 30, 2003 no intracranial hemorrhage. No mass lesions. No evidence of shift of the midline structures. The calvarium is unremarkable. IMPRESSION: 1. Hydrocephalus with a ventricular shunt in place. 2. Progression of the hydrocephalus since 2012 and stable since October 30, 2023. Please note that all CT scans at this facility use dose modulation, iterative reconstruction, and/or weight-based dosing when appropriate to reduce radiation dose to as low as reasonably achievable. Dictated by Sobeida Galindo MD @ 11/03/2023 5:06:01 PM Signed by:?Sobeida Galindo MD @11/03/2023 5:06:01 PM (Electronic Signature)
[2023-11-03 17:15] LABS: Basophils Absolute Auto 0.05 K/uL (0.00-0.30); Basophils Percent Auto 0.6 % (0.0-3.0); Eosinophils Absolute Auto 0.14 K/uL (0.00-0.50); Eosinophils Percent Auto 1.8 % (0.0-7.0); Hematocrit 38.6 % (33.0-51.0); Hemoglobin* 12.3 gm/dL (12.0-16.0); Immature Granulocytes Abs Auto 0.01 K/uL (0.00-0.30); Immature Granulocytes Pct Auto 0.1 %; Lymphocytes Percent Auto 18.4 % (20-44); Mean Corpuscular HGB Conc 32 gm/dL (32-36); Mean Corpuscular Hemoglobin 30 pg (26-34); Mean Corpuscular Volume 94 fL (80-100); Monocytes Percent Auto 8.7 % (0.0-11.0); Neutrophils Percent Auto 70.4 % (42.0-72.0); Platelet Count* 296 K/uL (140-440); RDW Coefficient of Variation % 13.1 % (11.5-15.5); Red Blood Count 4.09 m/uL (4.00-5.20); White Blood Count* 7.82 K/uL (4.50-11.00)
[2023-11-03 17:20] LABS: Slide Review Reflex No
[2023-11-03 17:27] LABS: Chloride* 106 mmol/L (96-114); Potassium* 4.1 mmol/L (3.6-5.1); Sodium* 138 mmol/L (135-149)
[2023-11-03 17:30] LABS: Creatinine* 1.3 mg/dL (0.5-1.5); Est. Creatinine Clearance* 22.73; Estimated Glomerular Filt Rate 40 ml/min
[2023-11-03 17:31] LABS: Anion Gap 8 mEq/L (7-15); Blood Urea Nitrogen* 40 mg/dL (7-30); Calcium* 10.1 mg/dL (8.4-10.6); Carbon Dioxide* 24 mmol/L (20-32); Glucose* 93 mg/dL (60-115)
[2023-11-03 17:33] LABS: C Reactive Protein* 0.6 mg/dL (0.5-1.0)
--- NOTE | 2023-11-03 17:47 | ED_ITS ---
HPI - General Adult General Chief complaint: Unspecified Complaint, Adult Stated complaint: confusion, brain fog Time Seen by Provider: 11/03/23 15:54 Related Data Home Medications Medication Instructions Recorded Confirmed buspirone 5 mg tablet 2.5 mg PO BID 02/02/23 10/30/23 citalopram 10 mg tablet 10 mg PO DAILY 02/02/23 10/30/23 furosemide 20 mg tablet 20 mg PO DAILY PRN 02/02/23 10/30/23 losartan 25 mg tablet 12.5 mg PO BID 02/02/23 10/30/23 pravastatin 40 mg tablet 40 mg PO DAILY 02/02/23 10/30/23 propranolol 20 mg tablet 20 mg PO BID 02/02/23 10/30/23 trazodone 50 mg tablet 25 mg PO QPM PRN 02/02/23 10/30/23 Previous Rx's Medication Instructions Recorded cefdinir 300 mg capsule 300 mg PO BID #10 caps 10/31/23 Allergies Allergy/AdvReac Type Severity Reaction Status Date / Time No Known Drug Allergies Allergy Verified 02/02/23 11:46 [facility] Medical History (Updated 11/03/23 @ 19:36 by Natali Del Valle MD) Anxiety ?F41.9 - Anxiety disorder, unspecified (ICD-10) Dysthymia ?F34.1 - Dysthymic disorder (ICD-10) Idiopathic normal pressure hydrocephalus (INPH) ?G91.2 - (Idiopathic) normal pressure hydrocephalus (ICD-10) Colonic polyp ?K63.5 - Polyp of colon (ICD-10) Benign positional vertigo ?H81.10 - Benign paroxysmal vertigo, unspecified ear (ICD-10) Essential hypertension ?I10 - Essential (primary) hypertension (ICD-10) Heart failure with preserved ejection fraction ?I50.30 - Unspecified diastolic (congestive) heart failure (ICD-10) Hyperlipidemia ?E78.5 - Hyperlipidemia, unspecified (ICD-10) Osteopenia ?M85.80 - Other specified disorders of bone density and structure, unspecified site (ICD-10) Surgical History (Updated 10/30/23 @ 22:49 by Angely Prieto MD) H/O cataract extraction ?Z98.49 - Cataract extraction status, unspecified eye (ICD-10) S/P arthroscopic knee surgery ?Z98.890 - Other specified postprocedural states (ICD-10) H/O ventral hernia repair ?Z98.890 - Other specified postprocedural states (ICD-10) ?Z87.19 - Personal history of other diseases of the digestive system (ICD-10) H/O spinal fusion ?Z98.1 - Arthrodesis status (ICD-10) Family History (Updated 10/30/23 @ 23:16 by Angely Prieto MD) Mother Macular degeneration Social History (Updated 10/30/23 @ 23:17 by Angely Prieto MD) Narrative: Lives independently in a [facility] in [place]. Uses a walker and cane at home to ambulate. 4 adult children, daughter Maribel would be MDM if needed. Nonsmoker, no ETOH use. Requests DNR/DNI status. What is your current living situation?: I presently have a place to live Problems where you live: no known problems Problems where you live details: n/a In the past 12 months, utilities in danger of being shut off: no In past 12 months, lack of transportation kept you from medical appts, meetings, work, or getting things needed for daily living: no In the past 12 mos, have been you worried that your food would run out before you had money to buy more?: never true In the past 12 mos, the food you bought just didn't last and you didn't have money to buy more?: never true Smoking Status: Never smoker Do you use any of these nicotine containing products: None How often do you have a drink containing alcohol: never How often do you have six or more drinks on one occasion: Never AUDIT-C Alcohol total score: 0 Non-prescribed substance use: denies use Caffeine: Yes (Coffee and diet pepsi) How often does anyone, including family, friends and others, physically hurt you : never How often does anyone, including family, friends and others, insult or talk down to you: never How often does anyone, including family, friends and others, threaten you with harm: never How often does anyone, including family, friends and others, scream or curse at you: never service: No Exam Const: Vital Signs, click to edit/add: Vital Signs - 24 hr 11/03/23 14:39 11/03/23 18:37 Temperature 99.0 F Pulse Rate [Right Pulse Oximeter] 61 Respiratory Rate 18 Blood Pressure [Le ft Upper Arm] 165/71 H 175/80 H Pulse Oximetry 98 Oxygen Delivery Me thod Room Air Course Course ED Course: Workup was unremarkable today, including a UA. I did repeat a head CT to make sure there is no acute changes from her recent 1 and it was entirely stable. I did consult with Dr. Paul, at [facility] who stated that if there is no source of infection and no acute findings on CT then outpatient follow-up was appropriate with Neurology. Vital Signs Vital signs: Initial Vital Signs Temperature 99.0 F 11/03/23 14:39 Temperature Source Temporal Artery Scan 11/03/23 14:39 Pulse Rate 61 11/03/23 14:39 Pulse Rhythm Regular 11/03/23 14:39 Pulse Strength 3+ Normal 11/03/23 14:39 Respiratory Rate 18 11/03/23 14:39 Blood Pressure 165/71 H 11/03/23 14:39 Blood Pressure Mean 102 11/03/23 14:39 Blood Pressure Position Sitting 11/03/23 14:39 Pulse Oximetry 98 11/03/23 14:39 Oxygen Delivery Method Room Air 11/03/23 14:39 Vital Signs Temperature 99.0 F 11/03/23 14:39 Pulse Rate 61 11/03/23 14:39 Respiratory Rate 18 11/03/23 14:39 Blood Pressure 165/71 H 11/03/23 14:39 Pulse Oximetry 98 11/03/23 14:39 Oxygen Delivery Method Room Air 11/03/23 14:39 Temperature 99.0 F 11/03/23 14:39 Pulse Rate 61 11/03/23 14:39 Respiratory Rate 18 11/03/23 14:39 Blood Pressure 175/80 H 11/03/23 18:37 Pulse Oximetry 98 11/03/23 14:39 Oxygen Delivery Method Room Air 11/03/23 14:39 Medical Decision Making MDM Narrative Medical decision making narrative: Increasing confusion. Recommend outpatient neurologic follow-up. Medical Records Medical records reviewed: Yes I reviewed the patient's medical records Lab Data Lab results reviewed: Yes I reviewed the patient's lab results Labs: Lab Results 11/03/23 11/03/23 Range/Units 16:38 17:09 WBC 7.82 (4.50-11.00) K/uL RBC 4.09 (4.00-5.20) m/uL Hgb 12.3 (12.0-16.0) gm/dL Hct 38.6 (33.0-51.0) % MCV 94 (80-100) fL MCH 30 (26-34) pg MCHC 32 (32-36) gm/dL RDW Coeff of Susan 13.1 (11.5-15.5) % Plt Count 296 (140-440) K/uL Neut % (Auto) 70.4 (42.0-72.0) % Lymph % (Auto) 18.4 L (20-44) % [place] % (Auto) 8.7 (0.0-11.0) % Eos % (Auto) 1.8 (0.0-7.0) % Baso % (Auto) 0.6 (0.0-3.0) % Neut # (Auto) 5.50 (1.7-7.0) K/uL Lymph # (Auto) 1.40 (0.90-2.90) K/uL [place] # (Auto) 0.70 (0.00-0.90) K/UL Eos # (Auto) 0.14 (0.00-0.50) K/uL Baso # (Auto) 0.05 (0.00-0.30) K/uL Abs Immat Gran (auto) 0.01 (0.00-0.30) K/uL Imm/Tot Granulo (auto) 0.1 % Sodium 138 (135-149) mmol/L Potassium 4.1 (3.6-5.1) mmol/L Chloride 106 (96-114) mmol/L Carbon Dioxide 24 (20-32) mmol/L Anion Gap 8 (7-15) mEq/L BUN 40 H (7-30) mg/dL Creatinine 1.3 (0.5-1.5) mg/dL Estimated Creat Clear 22.73 Estimated GFR 40 ml/min Glucose 93 (60-115) mg/dL Calcium 10.1 (8.4-10.6) mg/dL C-Reactive Protein 0.6 (0.5-1.0) mg/dL Urine Color Yellow (Yellow) Urine Appearance Clear (Clear) Urine pH 5.5 (5.0-8.5) Ur Specific [place] 1.020 (1.000-1.030) Urine Protein Negative (Negative) Urine Glucose (UA) Negative (Negative) Urine Ketones 1+ A (Negative) Urine Blood Negative (Negative) Urine Nitrite Negative (Negative) Urine Bilirubin Negative (Negative) Urine Urobilinogen 0.2 (0.2-1.0) Ur Leukocyte Esterase Negative (Negative) Urine RBC 0-2 (0-2) Urine WBC 0-2 (0-5) Ur Squamous Epith Cells None (None-Few) Urine Bacteria None (None) Imaging Data CT scan - head: Attestation: I have reviewed the pertinent imaging results. Radiologist's impression: Study:?CT-Head WITHOUTT-11/03/2023 4:57:04 PM Ordering Physician:?DR. DEL VALLE Final Report: INDICATION: Confusion. COMPARISON: CT head without contrast October 19, 2012 and October 30, 2023. TECHNIQUE: CT head without intravenous contrast; coronal and sagittal reformats. FINDINGS: Hydrocephalus with ventricular shunt in place. Progression of hydrocephalus sin ce 2012 and stable since October 30, 2003 no intracranial hemorrhage. No mass lesions. No evidence of shift of the midline structures. The calvarium is unremarkable. IMPRESSION: 1. Hydrocephalus with a ventricular shunt in place. 2. Progression of the hydrocephalus since 2012 and stable since October 30, 2023. Discharge Plan Discharge Clinical Impression: Confusion Patient Disposition: Home, Self-Care Condition: Stable Additional Instructions: Your workup today did not reveal any evidence of infection, urine was looking clear. I do recommend you finish your antibiotics as prescribed. There was no changes on your head CT. Recommend outpatient evaluation with a neurologist. Prescriptions: No Action buspirone 5 mg tablet 2.5 mg PO BID trazodone 50 mg tablet 25 mg PO QPM PRN pravastatin 40 mg tablet 40 mg PO DAILY citalopram 10 mg tablet 10 mg PO DAILY losartan 25 mg tablet 12.5 mg PO BID furosemide 20 mg tablet 20 mg PO DAILY PRN propranolol 20 mg tablet 20 mg PO BID cefdinir 300 mg capsule 300 mg PO BID Qty: 10 0RF Follow Up/Referrals: Kerwin Quiñones MD [Primary Care Provider] - Stand Alone [facility] Info Instructions
[2023-11-03 18:37] VITALS: BP 175/80
[2023-11-03 18:58] LABS: Appearance Urine Clear (Clear); Bilirubin Urine Negative (Negative); Blood Urine Negative (Negative); Color Urine Yellow (Yellow); Glucose Urine Negative (Negative); Ketones Urine 1+ (Negative); Leukocyte Esterase Urine Negative (Negative); Nitrite Urine Negative (Negative); Protein Urine Negative (Negative); Urobilinogen Urine 0.2 (0.2-1.0); pH Urine 5.5 (5.0-8.5)
[2023-11-03 19:15] LABS: RBC Urine 0-2 (0-2); WBC Urine 0-2 (0-5)
== END 2023-11-03 19:54 | disposition home or self-care (01) ==
PROVIDERS: Emergency Provider Family Medicine; PCP Family Medicine
DX: R41.0 Disorientation, unspecified (principal)
CPT/HCPCS: 36415; 70450; 80048; 81001; 85025; 86140; 87086; 87493; 94761; 99284

== ENCOUNTER 2023-11-30 14:52 | Outpatient (RCR) | payer SELFPAY | END 2024-11-29 10:41 | disposition home or self-care (01) | LOC: MOW 14:52 | PROVIDERS: PCP Family Medicine; Visit Provider Family Medicine | DX: Z76.0 Encounter for issue of repeat prescription (principal) | CPT/HCPCS: S5170 ==

== ENCOUNTER 2024-02-02 12:08 | Outpatient (CLI) | payer MEDICARE, BC, SELFPAY | END 2024-02-02 12:09 | disposition home or self-care (01) | LOC: NFLDREF 02-03 13:02 | PROVIDERS: PCP Family Medicine; Referring Provider Family Medicine; Visit Provider Family Medicine | DX: N30.00 Acute cystitis without hematuria (principal); R42 Dizziness and giddiness | CPT/HCPCS: 87086; 87186 ==

== ENCOUNTER 2024-03-29 09:26 | Outpatient (CLI) | payer MEDICARE, BC, SELFPAY | END 2024-03-29 09:27 | disposition home or self-care (01) | LOC: AMB 04-01 00:47 | PROVIDERS: PCP Family Medicine; Visit Provider Emergency Medicine Emergency Medical Services | DX: R53.1 Weakness (principal) | CPT/HCPCS: A0998 ==

== ENCOUNTER 2024-04-03 11:44 | Emergency (ER) | payer MEDICARE, BC, SELFPAY ==
[2024-04-03] VITALS (12 sets, daily range): BP systolic 159–180; BP diastolic 70–74; PULSE 59–71; RESP 18; TEMP 37.2; O2SAT 97–99; BMI 31.1
--- NOTE | 2024-04-03 12:18 | ED_ITS ---
HPI - General Adult General Time Seen by Provider: 12:18 Date Seen: 04/03/24 Chief complaint: Diarrhea Stated complaint: weakness, diarrhea Time Seen by Provider: 04/03/24 12:17 Source: patient and RN notes reviewed Mode of arrival: ambulatory Limitations: no limitations History of Present Illness HPI narrative: This 84-year-old female is coming in with concern of prolonged diarrhea. It has been present for at least 10 days. She describes it as explosive in nature. There is no blood, no fevers. She has no history of C difficile colitis, there has been no travel, no known ill contacts. She has maybe had some cramping, notes her stomach is gurgly but no abdominal pain at this time. She notes that she has had to clean up the bathroom a lot, has not been able to make it to the toilet all the time due to the explosive nature of the diarrhea. There is no nausea or vomiting, is still eating. She has tried to avoid lactose in dairy to help with the diarrhea but it is not changed it. She is feeling lightheaded and unsteady due to her GI losses. She notes that she is losing weight with this, it is affecting her sleep. She does have a history of back to back UTIs where she did receive antibiotics but believes that that was back in October. She has had colonoscopy before, had a colon polyp removed historically. Denies any history of diverticulitis. Related Data Home Medications ?Medication ?Instructions ?Recorded ?Confirmed buspirone 5 mg tablet 2.5 mg PO BID 02/02/23 02/02/24 citalopram 10 mg tablet 10 mg PO DAILY 02/02/23 02/02/24 furosemide 20 mg tablet 20 mg PO DAILY PRN 02/02/23 02/02/24 losartan 25 mg tablet 12.5 mg PO BID 02/02/23 02/02/24 pravastatin 40 mg tablet 40 mg PO DAILY 02/02/23 02/02/24 propranolol 20 mg tablet 20 mg PO BID 02/02/23 02/02/24 trazodone 50 mg tablet 25 mg PO QPM PRN 02/02/23 02/02/24 donepezil 5 mg tablet mg PO QDAY 02/02/24 02/02/24 Allergies Allergy/AdvReac Type Severity Reaction Status Date / Time bee venom protein (honey bee) Allergy Mild Verified 04/03/24 12:03 Review of Systems Status of ROS: Reports: 6 or more systems reviewed and unremarkable except as noted in History and below [facility] Medical History Anxiety ?F41.9 - Anxiety disorder, unspecified (ICD-10) Dysthymia ?F34.1 - Dysthymic disorder (ICD-10) Idiopathic normal pressure hydrocephalus (INPH) ?G91.2 - (Idiopathic) normal pressure hydrocephalus (ICD-10) Colonic polyp ?K63.5 - Polyp of colon (ICD-10) Benign positional vertigo ?H81.10 - Benign paroxysmal vertigo, unspecified ear (ICD-10) Essential hypertension ?I10 - Essential (primary) hypertension (ICD-10) Heart failure with preserved ejection fraction ?I50.30 - Unspecified diastolic (congestive) heart failure (ICD-10) Hyperlipidemia ?E78.5 - Hyperlipidemia, unspecified (ICD-10) Osteopenia ?M85.80 - Other specified disorders of bone density and structure, unspecified site (ICD-10) Surgical History H/O cataract extraction ?Z98.49 - Cataract extraction status, unspecified eye (ICD-10) S/P arthroscopic knee surgery ?Z98.890 - Other specified postprocedural states (ICD-10) H/O ventral hernia repair ?Z98.890 - Other specified postprocedural states (ICD-10) ?Z87.19 - Personal history of other diseases of the digestive system (ICD-10) H/O spinal fusion ?Z98.1 - Arthrodesis status (ICD-10) Family History Mother Macular degeneration Social History Narrative: Lives independently in a [facility] in [place]. Uses a walker and cane at home to ambulate. 4 adult children, daughter Maribel would be MDM if needed. Nonsmoker, no ETOH use. Requests DNR/DNI status. What is your current living situation?: I presently have a place to live Problems where you live: no known problems Problems where you live details: n/a In the past 12 months, utilities in danger of being shut off: no In past 12 months, lack of transportation kept you from medical appts, meetings, work, or getting things needed for daily living: no In the past 12 mos, have been you worried that your food would run out before you had money to buy more?: never true In the past 12 mos, the food you bought just didn't last and you didn't have money to buy more?: never true Smoking Status: Never smoker Do you use any of these nicotine containing products: None How often do you have a drink containing alcohol: never How often do you have six or more drinks on one occasion: Never AUDIT-C Alcohol total score: 0 Non-prescribed substance use: denies use Caffeine: Yes (Coffee and diet pepsi) How often does anyone, including family, friends and others, physically hurt you : never How often does anyone, including family, friends and others, insult or talk down to you: never How often does anyone, including family, friends and others, threaten you with harm: never How often does anyone, including family, friends and others, scream or curse at you: never service: No Exam Const: Vital Signs, click to edit/add: Vital Signs - 24 hr 04/03/24 11:55 04/03/24 12:04 04/03/24 12:05 Temperature 99.0 F Pulse Rate 61 61 Pulse Rate [Right Pulse Oximeter] 66 Respiratory Rate Blood Pressure 180/74 H Blood Pressure [Ri ght Upper Arm] 180/74 H Pulse Oximetry 98 99 99 Oxygen Delivery Me thod Room Air 04/03/24 12:15 04/03/24 12:30 04/03/24 12:46 Temperature Pulse Rate 60 61 63 Pulse Rate [Right Pulse Oximeter] Respiratory Rate Blood Pressure Blood Pressure [Ri ght Upper Arm] Pulse Oximetry 98 98 99 Oxygen Delivery Me thod 04/03/24 12:49 04/03/24 12:50 04/03/24 13:00 Temperature Pulse Rate 66 59 L 60 Pulse Rate [Right Pulse Oximeter] Respiratory Rate Blood Pressure 159/70 H Blood Pressure [Ri ght Upper Arm] Pulse Oximetry 98 99 98 Oxygen Delivery Me thod 04/03/24 13:15 04/03/24 13:45 04/03/24 14:46 Temperature Pulse Rate 71 70 64 Pulse Rate [Right Pulse Oximeter] Respiratory Rate 18 Blood Pressure Blood Pressure [Ri ght Upper Arm] Pulse Oximetry 97 99 98 Oxygen Delivery Md thod This 84-year-old female is lying in the bed in exam room 1, she is alert, interactive, no apparent distress. Patient appears very well kept, is certainly very pleasant. Pupils equal round reactive to light, sclera clear. Symmetrical facial function. Lips appear normal, oral mucosa looks hydrated. Neck is supple, no jugular venous distension or masses or adenopathy noted. Lungs are clear, good air entry, no wheezing or crackles. CV regular rate and rhythm, no murmur, normal S1-S2, no S3-S4. Abdomen is soft, does have active bowel sounds but there is absolutely no masses, no organomegaly, no rebound or guarding whatsoever. Skin visualized without rash. Documenting provider has reviewed patient's vital signs: yes Course Course ED Course: Patient does have a course of prolonged diarrhea, this could be non infectious colitis such is microscopic or collagenous colitis. We will get full complement of labs, consider infectious etiology as well as viral. Have reviewed with patient that we just learned that we are in IV fluid conservation due to anticipated shortage from [place]. She really should be able to continue with oral supplementation. She does tell me she has been trying to drink Gatorade. We will order Pedialyte, full complement of labs. Will initiate IV fluids if there is a need based on evidence of dehydration or electrolyte abnormalities. Discussed with her that we really need to collect stool for testing. Ultimately if she has ongoing symptoms and her workup is negative, stool studies are negative, colonoscopy would be indicated. I do not feel any imaging is necessary but will reconsider based on laboratory evaluation. Reevaluation(s) Time of Reevaluation #1: 13:10 Reevaluation #1: Patient is requesting to eat, will allow her to do so. Hopefully this will allow us to collect stool specimens more quickly. Time of Reevaluation #2: 13:39 Reevaluation #2: Patient's sodium is mildly low at 131, has historically been normal here. Did subsequently order 500 mL normal saline, will encourage her to continue working on the electrolyte replacement solution orally as well. Time of Reevaluation #3: 14:52 Reevaluation #3: Patient in I went over her reassuring lab results outside of a minimally low sodium. She is receiving 500 mL of normal saline. Did recommend continuing with oral replacement with electrolyte type drink. She really does not qualify for hospitalization, reviewed that we do not have a quick fix for the diarrhea. She was able to provide a stool specimen. Reviewed with her that the stool studies in ova and parasite are send out and will take days to come back. We should know later today about the C difficile, do wonder if this will be negative. Reviewed that the next step would be for her to do some dietary management, continue electrolyte solution replacement, colonoscopy would be the next diagnostic step which we would not do from the ER. We will get her scheduled for follow-up in clinic next week, electrolytes need to be rechecked. Did discuss signs and symptoms for return. Vital Signs Vital signs: Initial Vital Signs Temperature 99.0 F 04/03/24 11:55 Temperature Source Temporal Artery Scan 04/03/24 11:55 Pulse Rate 66 04/03/24 11:55 Pulse Rhythm Regular 04/03/24 11:55 Blood Pressure 180/74 H 04/03/24 11:55 Blood Pressure Mean 109 H 04/03/24 11:55 Blood Pressure Position Supine 04/03/24 11:55 Pulse Oximetry 98 04/03/24 11:55 Oxygen Delivery Method Room Air 04/03/24 11:55 Vital Signs Temperature 99.0 F 04/03/24 11:55 Pulse Rate 66 04/03/24 11:55 Blood Pressure 180/74 H 04/03/24 11:55 Pulse Oximetry 98 04/03/24 11:55 Oxygen Delivery Method Room Air 04/03/24 11:55 Temperature 99.0 F 04/03/24 11:55 Pulse Rate 64 04/03/24 14:46 Respiratory Rate 18 04/03/24 13:15 Blood Pressure 159/70 H 04/03/24 12:49 Pulse Oximetry 98 04/03/24 14:46 Oxygen Delivery Method Room Air 04/03/24 11:55 Medications Administered Medications: Generic Name Dose Route Start Last Admin Trade Name Freq PRN Reason Stop Dose Admin Oral Electrolytes 1,014 ml 04/03/24 12:29 04/03/24 12:45 Electrolytes/Dextrose Oral Laurence 1,000 Ml PO 1,000 ml ONCE PRN Administration Medical Decision Making Lab Data Lab results reviewed: Yes I reviewed the patient's lab results Labs: Lab Results 04/03/24 Range/Units 12:45 WBC 6.06 (4.50-11.00) K/uL RBC 3.71 L (4.00-5.20) m/uL Hgb 11.4 L (12.0-16.0) gm/dL Hct 35.3 (33.0-51.0) % MCV 95 (80-100) fL MCH 31 (26-34) pg MCHC 32 (32-36) gm/dL RDW Coeff of Susan 14.1 (11.5-15.5) % Plt Count 212 (140-440) K/uL Neut % (Auto) 73.8 H (42.0-72.0) % Lymph % (Auto) 16.0 L (20-44) % [place] % (Auto) 8.1 (0.0-11.0) % Eos % (Auto) 0.7 (0.0-7.0) % Baso % (Auto) 1.2 (0.0-3.0) % Neut # (Auto) 4.50 (1.7-7.0) K/uL Lymph # (Auto) 1.00 (0.90-2.90) K/uL [place] # (Auto) 0.50 (0.00-0.90) K/UL Eos # (Auto) 0.04 (0.00-0.50) K/uL Baso # (Auto) 0.07 (0.00-0.30) K/uL Abs Immat Gran (auto) 0.01 (0.00-0.30) K/uL Imm/Tot Granulo (auto) 0.2 % Sodium 131 L (135-149) mmol/L Potassium 4.1 (3.6-5.1) mmol/L Chloride 100 (96-114) mmol/L Carbon Dioxide 25 (20-32) mmol/L Anion Gap 6 L (7-15) mEq/L BUN 24 (7-30) mg/dL Creatinine 1.2 (0.5-1.5) mg/dL Estimated Creat Clear 35.90 Estimated GFR 44 ml/min Glucose 97 (60-115) mg/dL Lactate 0.8 (0.5-1.9) mmol/L Calcium 9.9 (8.4-10.6) mg/dL Total Bilirubin 0.7 (0.1-1.5) mg/dL Direct Bilirubin 0.3 (0.0-0.5) mg/dL AST 27 (12-35) U/L ALT 21 (4-35) U/L Alkaline Phosphatase 46 (40-150) U/L C-Reactive Protein < 0.5 L (0.5-1.0) mg/dL Total Protein 6.6 (6.0-8.3) g/dL Albumin 4.3 (3.3-5.0) g/dL Procalcitonin 0.07 (<0.50) ng/mL Discharge Plan Discharge Clinical Impression: Acute hyponatremia Diarrhea Qualifiers: Diarrhea type: unspecified type Qualified Code(s): R19.7 - Diarrhea, unspecified Patient Disposition: Home, Self-Care Condition: Stable Instructions: Hyponatremia (ED), Acute Diarrhea (ED), Nutrition Tips for Relief of Diarrhea (ED) Additional Instructions: The stool culture and ova and parasite will not be back for days, we will contact you if it should show any reason for the diarrhea. This stool test for the Clostridium difficile should be back later today, again, we will only contact you if it is positive in you require treatment. In the meantime, co ntinue to push Gatorade or Pedialyte, this is a good electrolyte replacement solution. Review the handout on nutrition tips for relief of diarrhea. We have a clinic follow-up for you next week, your electrolytes should be rechecked. If the diarrhea is not settling down and all the stool studies are negative, colonoscopy would be the next step in attempting a diagnosis. If you develop worsening diarrhea, cannot keep up with fluid replacement, have vomiting or fever or blood in the stool develop, need to return to the ER for further evaluation. Activity Level: Activity as Tolerated Prescriptions: No Action donepezil 5 mg tablet PO QDAY Patient Comments: [NO ORIGINAL SIG] buspirone 5 mg tablet 2.5 mg PO BID trazodone 50 mg tablet 25 mg PO QPM PRN pravastatin 40 mg tablet 40 mg PO DAILY citalopram 10 mg tablet 10 mg PO DAILY losartan 25 mg tablet 12.5 mg PO BID furosemide 20 mg tablet 20 mg PO DAILY PRN propranolol 20 mg tablet 20 mg PO BID Follow Up/Referrals: Shae Ruelas MD [Primary Care Provider] - 04/08/24 1:00 pm (Follow up appointment to check sodium at [facility] in [place]. ) Kerwin Quiñones MD [Referring] - Stand Alone Forms: [employer] Info Instructions
[2024-04-03] MEDS: ELECTROLYTES/DEXTROSE ORAL SOL 1,000 ML 1014 ML PO (12:45)
[2024-04-03 12:52] LABS: Lactate* 0.8 mmol/L (0.5-1.9)
[2024-04-03 12:57] LABS: Basophils Absolute Auto 0.07 K/uL (0.00-0.30); Basophils Percent Auto 1.2 % (0.0-3.0); Eosinophils Absolute Auto 0.04 K/uL (0.00-0.50); Eosinophils Percent Auto 0.7 % (0.0-7.0); Hematocrit 35.3 % (33.0-51.0); Hemoglobin* 11.4 gm/dL (12.0-16.0); Immature Granulocytes Abs Auto 0.01 K/uL (0.00-0.30); Immature Granulocytes Pct Auto 0.2 %; Mean Corpuscular HGB Conc 32 gm/dL (32-36); Mean Corpuscular Hemoglobin 31 pg (26-34); Mean Corpuscular Volume 95 fL (80-100); Monocytes Percent Auto 8.1 % (0.0-11.0); Neutrophils Percent Auto 73.8 % (42.0-72.0); Platelet Count* 212 K/uL (140-440); RDW Coefficient of Variation % 14.1 % (11.5-15.5); Red Blood Count 3.71 m/uL (4.00-5.20); White Blood Count* 6.06 K/uL (4.50-11.00)
[2024-04-03 13:02] LABS: Slide Review Reflex No
[2024-04-03 13:11] LABS: Albumin* 4.3 g/dL (3.3-5.0); Chloride* 100 mmol/L (96-114)
[2024-04-03 13:12] LABS: Potassium* 4.1 mmol/L (3.6-5.1); Sodium* 131 mmol/L (135-149)
[2024-04-03 13:14] LABS: Creatinine* 1.2 mg/dL (0.5-1.5); Estimated Glomerular Filt Rate 44 ml/min
[2024-04-03 13:15] LABS: Alanine Aminotransferase* 21 U/L (4-35); Alkaline Phosphatase* 46 U/L (40-150); Anion Gap 6 mEq/L (7-15); Aspartate Amino Transferase* 27 U/L (12-35); Bilirubin Direct* 0.3 mg/dL (0.0-0.5); Bilirubin Total* 0.7 mg/dL (0.1-1.5); Blood Urea Nitrogen* 24 mg/dL (7-30); Calcium* 9.9 mg/dL (8.4-10.6); Carbon Dioxide* 25 mmol/L (20-32); Glucose* 97 mg/dL (60-115); Total Protein* 6.6 g/dL (6.0-8.3)
[2024-04-03 13:25] LABS: C Reactive Protein* < 0.5 mg/dL (0.5-1.0)
[2024-04-03 13:30] LABS: Procalcitonin* 0.07 ng/mL (<0.50)
[2024-04-03] MEDS: 0.9 % SODIUM CHLORIDE 500 ML 500 ML IV (14:35)
[2024-04-04 13:26] LABS: C.Difficile Negative (Negative); CDIFFEPI 027 PRESUMPTIVE NEGATIVE (Negative)
[2024-04-12 03:26] LABS: Ova and Parasite, Fecal Negative (Negative)
== END 2024-04-03 15:52 | disposition home or self-care (01) ==
PROVIDERS: Emergency Provider Family Medicine; PCP Student in an Organized Health Care Education/Training Program
DX: E87.1 Hypo-osmolality and hyponatremia (principal); R19.7 Diarrhea, unspecified
CPT/HCPCS: 36415; 80053; 82248; 83605; 84145; 85025; 86140; 87045; 87046; 87077; 87177; 87209; 87427; 87493; 96360; 99284; A9270; J7030

== ENCOUNTER 2024-04-19 17:53 | Emergency (ER) | payer MEDICARE, BC, SELFPAY ==
[2024-04-19 17:56] VITALS: BP 157/79; PULSE 58; RESP 18; TEMP 37; O2SAT 97; BMI 28.3
--- NOTE | 2024-04-19 18:36 | ED.LOWEXIN ---
HPI - Extremity Injury (Lower) General Date Seen: 04/19/24 Chief Complaint: Lower Extremity Swelling Stated Complaint: R leg oozing clear liquid Time Seen by Provider: 04/19/24 17:54 Source: patient and family Mode of arrival: ambulatory Limitations: no limitations History of Present Illness HPI Narrative: Patient is a very nice 84-year-old female presents here with her daughter with clear bruising from her right thrasher, this started today she noticed it while she was watching the [employer] game she does remember picking at her right leg, or hitting it against anything. She has no pain with this, there is no redness, suggest fever she does have a history of leg edema, and heart failure with preserved ejection fraction she does take Lasix but does not remember or take it as much as she should. She otherwise feels fine. Related Data Home Medications ?Medication ?Instructions ?Recorded ?Confirmed buspirone 5 mg tablet 2.5 mg PO BID 02/02/23 04/19/24 citalopram 10 mg tablet 10 mg PO DAILY 02/02/23 04/19/24 furosemide 20 mg tablet 20 mg PO DAILY PRN 02/02/23 04/19/24 losartan 25 mg tablet 12.5 mg PO BID 02/02/23 04/19/24 pravastatin 40 mg tablet 40 mg PO DAILY 02/02/23 04/19/24 propranolol 20 mg tablet 20 mg PO BID 02/02/23 04/19/24 trazodone 50 mg tablet 25 mg PO QPM PRN 02/02/23 04/19/24 donepezil 5 mg tablet mg PO QDAY 02/02/24 02/02/24 Allergies Allergy/AdvReac Type Severity Reaction Status Date / Time bee venom protein (honey bee) Allergy Mild Verified 04/19/24 18:02 Review of Systems Status of ROS: Reports: 6 or more systems reviewed and unremarkable except as noted in History and below [facility] Medical History Anxiety ?F41.9 - Anxiety disorder, unspecified (ICD-10) Dysthymia ?F34.1 - Dysthymic disorder (ICD-10) Idiopathic normal pressure hydrocephalus (INPH) ?G91.2 - (Idiopathic) normal pressure hydrocephalus (ICD-10) Colonic polyp ?K63.5 - Polyp of colon (ICD-10) Benign positional vertigo ?H81.10 - Benign paroxysmal vertigo, unspecified ear (ICD-10) Essential hypertension ?I10 - Essential (primary) hypertension (ICD-10) Heart failure with preserved ejection fraction ?I50.30 - Unspecified diastolic (congestive) heart failure (ICD-10) Hyperlipidemia ?E78.5 - Hyperlipidemia, unspecified (ICD-10) Osteopenia ?M85.80 - Other specified disorders of bone density and structure, unspecified site (ICD-10) Surgical History H/O cataract extraction ?Z98.49 - Cataract extraction status, unspecified eye (ICD-10) S/P arthroscopic knee surgery ?Z98.890 - Other specified postprocedural states (ICD-10) H/O ventral hernia repair ?Z98.890 - Other specified postprocedural states (ICD-10) ?Z87.19 - Personal history of other diseases of the digestive system (ICD-10) H/O spinal fusion ?Z98.1 - Arthrodesis status (ICD-10) Family History Mother Macular degeneration Social History Narrative: Lives independently in a [facility] in [place]. Uses a walker and cane at home to ambulate. 4 adult children, daughter Maribel would be MDM if needed. Nonsmoker, no ETOH use. Requests DNR/DNI status. What is your current living situation?: I presently have a place to live Problems where you live: no known problems Problems where you live details: n/a In the past 12 months, utilities in danger of being shut off: no In past 12 months, lack of transportation kept you from medical appts, meetings, work, or getting things needed for daily living: no In the past 12 mos, have been you worried that your food would run out before you had money to buy more?: never true In the past 12 mos, the food you bought just didn't last and you didn't have money to buy more?: never true Smoking Status: Never smoker Do you use any of these nicotine containing products: None How often do you have a drink containing alcohol: never How often do you have six or more drinks on one occasion: Never AUDIT-C Alcohol total score: 0 Non-prescribed substance use: denies use Caffeine: Yes (Coffee and diet pepsi) How often does anyone, including family, friends and others, physically hurt you: never How often does anyone, including family, friends and others, insult or talk down to you: never How often does anyone, including family, friends and others, threaten you with harm: never How often does anyone, including family, friends and others, scream or curse at you: never service: No Exam Narrative: Exam Narrative: On examination patient is no distress examination of the right thrasher shows a little couple little areas with clear discharge, consistent with a little break in the skin, there is no redness to suggest infection, no unilateral swelling, her pulses are normal, and her DM is actually the same on both legs. Const: Vital Signs, click to edit/add: Vital Signs - 24 hr 04/19/24 17:56 Temperature 98.6 F Pulse Rate [Right Pulse Oximeter] 58 L Respiratory Rate 18 Blood Pressure [Ri ght Upper Arm] 157/79 H Pulse Oximetry 97 Oxygen Delivery Me thod Room Air Documenting provider has reviewed patient's vital signs: yes Course Vital Signs Vital signs: Initial Vital Signs Temperature 98.6 F 04/19/24 17:56 Temperature Source Temporal Artery Scan 04/19/24 17:56 Pulse Rate 58 L 04/19/24 17:56 Pulse Rhythm Regular 04/19/24 17:56 Pulse Strength 3+ Normal 04/19/24 17:56 Respiratory Rate 18 04/19/24 17:56 Blood Pressure 157/79 H 04/19/24 17:56 Blood Pressure Mean 105 04/19/24 17:56 Blood Pressure Position Sitting 04/19/24 17:56 Pulse Oximetry 97 04/19/24 17:56 Oxygen Delivery Method Room Air 04/19/24 17:56 Vital Signs Temperature 98.6 F 04/19/24 17:56 Pulse Rate 58 L 04/19/24 17:56 Respiratory Rate 18 04/19/24 17:56 Blood Pressure 157/79 H 04/19/24 17:56 Pulse Oximetry 97 04/19/24 17:56 Oxygen Delivery Method Room Air 04/19/24 17:56 Temperature 98.6 F 04/19/24 17:56 Pulse Rate 58 L 04/19/24 17:56 Respiratory Rate 18 04/19/24 17:56 Blood Pressure 157/79 H 04/19/24 17:56 Pulse Oximetry 97 04/19/24 17:56 Oxygen Delivery Method Room Air 04/19/24 17:56 MDM - Extremity Injury (Lower) MDM Narrative Medical decision making narrative: I discussed with her that there is no reason to do anything other than wrapping that she should wear compression stockings, she is aware non adherent dressing over top with a little bacitracin if signs of infection occur then she should come back the other thing if it ulcers then she should be seen in the wound clinic. They were comfortable with this plan Medical Records Attestation: I reviewed the patient's medical records. Discharge Plan Discharge Clinical Impression: Edema Patient Disposition: Home w/ Parent or Adult Condition: Stable Instructions: Leg Edema (ED) Additional Instructions: Daily wrap your legs, this is just a reflection of the edema in your lower legs, few lift them up it will decrease, consider put some bacitracin also with that, wearing your leg or compression socks will also help. If they do get infected her reddened please come back, Activity Level: Light activity Prescriptions: No Action donepezil 5 mg tablet PO QDAY Patient Comments: [NO ORIGINAL SIG] buspirone 5 mg tablet 2.5 mg PO BID trazodone 50 mg tablet 25 mg PO QPM PRN pravastatin 40 mg tablet 40 mg PO DAILY citalopram 10 mg tablet 10 mg PO DAILY losartan 25 mg tablet 12.5 mg PO BID furosemide 20 mg tablet 20 mg PO DAILY PRN propranolol 20 mg tablet 20 mg PO BID Follow Up/Referrals: Shae Ruelas MD [Primary Care Provider] - Stand Alone Forms: [employer] Info Instructions
== END 2024-04-19 19:00 | disposition home or self-care (01) ==
LOC: ED 18:37
PROVIDERS: Emergency Provider Family Medicine; PCP Student in an Organized Health Care Education/Training Program
DX: R60.9 Edema, unspecified (principal)
CPT/HCPCS: 99282; 99283

== ENCOUNTER 2025-01-28 09:03 | Outpatient (REF) | payer MEDICARE, BC, SELFPAY ==
[2025-01-28 09:35] LABS: Appearance Urine Clear (Clear)
--- OUTSIDE RECORDS SUMMARY | 2025-01-29 00:17 | XMS_ITS ---
Author Organization [facility] ter Care Team Providers Care Instructional Design Specialist Name Role Phone Maylin Arriaga Unavailable Unavailable Chaz Gill Unavailable Unavailable Allergies and adverse reactions Code CodeSystem Substance Reaction Severity StartDate Concern Status Hay fever Unknown 12/09/2020 active Bee Venom Unknown 12/09/2020 active Care Team Name Role Address Phone Organization Dates Chaz VILLAFANA Genev[facility] [address] [place] [address], [address], [place], [place], [facility] (Office): [facility] 02/01/2021 - 07/01/2022 Maylin Arriaga [facility] [address] [place] [address] [address], [place], [facility], [place] (Office): : [facility] 02/01/2021 - 07/01/2022 Immunizations Immunization Status Vaccine Details Vaccine Code CodeSystem Date Notes Influenza completed Influenza, high-dose, split virus, quadrivalent, injectable, preservative free 197 CVX created date: 12/09/2020 administere d date: 03/23/2020 Prevnar 13 completed pneumococcal conjugate vaccine, 13 valent 133 CVX created date: 12/09/2020 administere d date: 05/09/2017 Pneumovax 23 completed pneumococcal polysaccharide vaccine, 23 valent 33 CVX created date: 12/09/2020 administere d date: 01/28/2012 Shingrix (Inactivated Shingles) completed zoster vaccine recombinant 187 CVX created date: 12/09/2020 administere d date: 12/11/2018 COVID-19 Vaccine dose 1 completed SARS-COV-2 (COVID-19) vaccine, mRNA, spike protein, LNP, preservative free, 100 mcg/0.5mL dose or 50 mcg/0.25mL dose Mfg: Pfizer 207 CVX created date: 12/09/2020 administere d date: 08/13/2020 COVID-19 Vaccine dose 2 completed SARS-COV-2 (COVID-19) vaccine, mRNA, spike protein, LNP, preservative free, 100 mcg/0.5mL dose or 50 mcg/0.25mL dose Mfg: Pfizer 207 CVX created date: 12/09/2020 administere d date: 09/03/2020 Mental Status Section Date Assessment Total Score Description 12/15/2020 BIMS 13 cognitively int act CAM 0 No delirium ind icated PHQ-9 04 minimal depress ion Problems Problem # Description Date of onset Resolved Date Code CodeSystem Concern Status 1 CHRONIC KIDNEY DISEASE, STAGE 3 UNSPECIFIED 12/09/[address] active 2 CONSTIPATION, UNSPECIFIED 12/09/[address] active 3 DYSTHYMIC DISORDER 12/09/[address] active 4 ESSENTIAL (PRIMARY) HYPERTENSION 12/09/[address] active 5 HYPERLIPIDEMIA, UNSPECIFIED 12/09/[address] active 6 INSOMNIA, UNSPECIFIED 12/09/[address] active 7 OTHER INTERVERTEBRAL DISC DISORDERS, LUMBAR REGION 12/09/[address] active 8 PALMAR FASCIAL FIBROMATOSIS [DUPUYTREN] 12/09/20202029313422572 SNOMED CT active 9 UNSPECIFIED FRACTURE OF SACRUM, SUBSEQUENT ENCOUNTER FOR FRACTURE WITH ROUTINE HEALING 12/09/[address] active 10 UNSTEADINESS ON FEET 12/09/[address] active Reason for Referral No Reasons for Referral Entered Social History Social History Observation Description Start Date End Date Code Code System Current Smoking Status Tobacco smoking consumption unknown 749235490 SNOMED CT Sex Assigned At Female 1940 07582-6 [facility] Gender Identity Vital Signs Code Code System Vitals Name Values and Units Timing Information 8462-4 [facility] Blood Pressure-Diastolic Value=57 Un its=mmHg 12/23/2020 8480-6 [facility] Blood Pressure-Systolic Lzfbr=678 Un its=mmHg 12/23/2020 8867-4 [facility] Heart rate Value=80.0 Units=/min 8310-5 [facility] Body Temperature Value=97.3 Units= F 12/23/2020 23917-4 [facility] O2 % BldC Oximetry Value=96.0 Units= % 12/23/2020 94515-9 [facility] Weight Agyqh=336.6 Units=Lbs 9279-1 [facility] Respiratory Rate Value=18.0 Units=/m in 12/22/2020 8302-2 [facility] Height Value=60.0 Units=Inches 12/10/2020
--- OUTSIDE RECORDS SUMMARY | 2025-01-29 00:17 | XMS_ITS | Clinical Summary ---
Author Organization [facility] Address [address] [place] [address] Care Team Providers Care Head Bander And Liner Operator Name Role Phone RonnieteKerwin joyner Primary Care Provider [phone] Allergies Active Allergy Reactions Criticality Noted Date Comments Bee Venom Swelling 03/25/2017 Medications Multiple Vitamins-Mineral s (CENTRUM PO) Take 1 tablet by mouth daily Active multivitamin (OCUVITE) TABS Take 1 tablet by mouth daily Active EPINEPHrine (EPIPEN IJ) Inject as directed. Active TRAZODONE HCL PO Take 50-100 mg by mouth At Bedtime (2 x 50 mg = 100 mg dose) Active CALCIUM PO Take 1,200 mg by mouth daily Active VITAMIN D, CHOLECALCIFEROL, PO Take 1,000 Units by mouth daily Active PRAVASTATIN SODIUM PO Take 40 mg by mouth every evening (0.5 x 80 mg = 40 mg dose) Active triamterene-hydr ochlorothiazide (MAXZIDE) 75-50 MG per tablet Take 1 tablet by mouth daily Active Acetaminophen (TYLENOL PO) Take 500-1,000 mg by mouth every 6 hours as needed Active calcitonin, salmon, (MIACALCIN) 200 UNIT/ACT nasal spray [place] 1 spray into one nostril alternating nostrils daily Alternate nostril each day. Active OMEPRAZOLE PO Take 20 mg by mouth daily Active Propranolol HCl (INDERAL PO) Take 20 mg by mouth 2 times daily as needed for other (Tremors) Active Citalopram Hydrobromide (CELEXA PO) Take 10 mg by mouth daily Active TIZANIDINE HCL PO Take 4 mg by mouth 2 times daily as needed for muscle spasms Active calcium carbonate (TUMS) 500 MG chewable tabletIndication s:Spinal stenosis of lumbar region, unspecified whether neurogenic claudication present Take 1 tablet (500 mg) by mouth daily 50 tablet 7 Active Additional Information Patient not taking.Reported on 01/25/2021 ondansetron (ZOFRAN-ODT) 4 MG ODT tabIndications:S elliott stenosis of lumbar region, unspecified whether neurogenic claudication present,Open fracture of thoracic vertebra with spinal cord lesion, initial encounter (H) Take 1 tablet (4 mg) by mouth every 6 hours as needed for nausea or vomiting 50 tablet 7 Active Additional Information Patient not taking.Reported on 05/26/2018 lidocaine (LIDODERM) 5 % PatchIndications :Spinal stenosis of lumbar region, unspecified whether neurogenic claudication present,Open fracture of thoracic vertebra with spinal cord lesion, initial encounter (H) Place 2 patches onto the skin every 24 hours For back pain 60 patch 7 Active Additional Information Patient not taking.Reported on 05/26/2018 bisacodyl (DULCOLAX) 5 MG EC tabletIndication s:Spinal stenosis of lumbar region, unspecified whether neurogenic claudication present,Open fracture of thoracic vertebra with spinal cord lesion, initial encounter (H) Take 2 tablets (10 mg) by mouth daily as needed for constipation 30 tablet 7 Active Additional Information Patient not taking.Reported on 05/26/2018 docusate sodium (COLACE) 100 MG capsuleIndicatio ns:Spinal stenosis of lumbar region, unspecified whether neurogenic claudication present,Open fracture of thoracic vertebra with spinal cord lesion, initial encounter (H) Take 1 capsule (100 mg) by mouth 2 times daily 60 capsule 7 Active Additional Information Patient not taking.Reported on 05/26/2018 magnesium hydroxide (MILK OF MAGNESIA) 400 MG/5ML suspensionIndica tions:Spinal stenosis of lumbar region, unspecified whether neurogenic claudication present,Open fracture of thoracic vertebra with spinal cord lesion, initial encounter (H) Take 30 mLs by mouth daily as needed for constipation 105 mL 7 Active Additional Information Patient not taking.Reported on 05/26/2018 polyethylene glycol (MIRALAX/GLYCOLA X) PacketIndication s:Spinal stenosis of lumbar region, unspecified whether neurogenic claudication present,Open fracture of thoracic vertebra with spinal cord lesion, initial encounter (H) Take 17 g by mouth 2 times daily as needed (constipation) 7 packet 7 Active Additional Information Patient not taking.Reported on 05/26/2018 senna-docusate (SENOKOT-S;PERIC OLACE) 8.6-50 MG per tabletIndication s:Spinal stenosis of lumbar region, unspecified whether neurogenic claudication present,Open fracture of thoracic vertebra with spinal cord lesion, initial encounter (H) Take 1 tablet by mouth 2 times daily as needed for constipation 100 tablet 7 Active Additional Information Patient not taking.Reported on 05/26/2018 tamsulosin (FLOMAX) 0.4 MG capsuleIndicatio ns:Spinal stenosis of lumbar region, unspecified whether neurogenic claudication present,Open fracture of thoracic vertebra with spinal cord lesion, initial encounter (H) Take 1 capsule (0.4 mg) by mouth daily 60 capsule 7 Active Additional Information Patient not taking.Reported on 05/26/2018 carbamide peroxide (DEBROX) 6.5 % otic solutionIndicati ons:Spinal stenosis of lumbar region, unspecified whether neurogenic claudication present Place 3 drops into both ears daily as needed for other (for wax build up as needed, no more than 3 consecutive days) 7 Active Additional Information Patient not taking.Reported on 05/26/2018 oxyCODONE IR (ROXICODONE) 5 MG tabletIndication s:Spinal stenosis of lumbar region, unspecified whether neurogenic claudication present,Open fracture of thoracic vertebra with spinal cord lesion, initial encounter (H) Take 1 tablet (5 mg) by mouth every 3 hours as needed for moderate to severe pain 60 tablet 7 Active Additional Information Patient not taking.Reported on 05/26/2018 furosemide (LASIX) 20 MG tablet Take 20 mg by mouth daily Active fluticasone (FLONASE) 50 MCG/ACT nasal spray [place] 2 sprays into both nostrils daily Active Active Problems Problem Noted Date Diagnosed Date Fracture of thoracic spine with cord lesion 04/02 Lumbar stenosis 04/28/2017 Social History Tobacco Use Types Packs/Day Years Used Date Smoking Tobacco: Former Smokeless Tobacco: Never Tobacco Cessation:Counseling Given: No Comments:former smoker Alcohol Use Standard Drinks/Week Comments Not Asked 0 (1 standard drink = 0.6 oz pur e alcohol) Adolescent Education Answer Date Record ed Getting School Help Needed Not on file 03/27 Comments No Sex and Gender Information Value Date Recorded Sex Assigned at Not on file Legal Sex Female 3:15 AM [employer] Gender Identity Not on file Sexual Orientation Not on file Last Filed Vital Signs Vital Sign Reading Time Taken Comments Blood Pressure 106/74 02/27/2021 2:45 PM CDT Pulse 60 02/27/2021 2:45 PM CDT Temperature 36.5 C (97.7 F) 01/25/2021 2:17 PM CDT Respiratory Rate 16 05/06/2017 11:29 AM [employer] Oxygen Saturation 97% 02/27/2021 2:45 PM CDT Inhaled Oxygen Concentration - - Weight 72.6 kg (160 lb) 02/27/2021 2:45 PM CDT Height 152.4 cm (5') 02/27/2021 2:45 PM CDT Body Mass Index 31.25 02/27/2021 2:45 PM CDT Plan of Treatment Health Maintenance Due Date Last Done Comments ADVANCE CARE PLANNING 1940 ANNUAL REVIEW OF HM ORDERS 1940 DEXA 1940 LIPID 1940 FALL RISK ASSESSMENT 2003 RSV VACCINE (1 - 1-dose 75+ series) 2013 DTAP/TDAP/TD VACCINE (1 - Tdap) 01/06/2015 01/05/2015 COVID-19 VACCINE ( - 2023- season) 2024 10/11/2021, 04/11/2021, 09/03/2020, Additional history exists PHQ-2 (once per calendar year) 2024 INFLUENZA VACCINE (#1) 2025 , 03/23/2020, 04/24/2019, Additional history exists PNEUMOCOCCAL VACCINE 50+ YEARS Completed 05/09/2017, 04/22/2015, 01/28/2012, Additional history exists ZOSTER VACCINE Completed 12/11/2018, 08/30, 12/10/2007 HPV VACCINE (No Doses Required) Completed MENINGITIS VACCINE Aged Out No longer eligible based on patient's age to complete this topic Medical Devices Implanted Type Area Winding Rack Operator Device Identifier Shelf Expiration Date Model / Serial / Lot Graft Bone Infuse Bmp Lg [id number] Implanted:Qty : 1 on 04/29/2017 by Ramon Staples MD at [facility] Bone/Tis lillian/Biol ogic N/A: Spine Lumbar [employer] 10/29/2018 [id number] / / [id number] Graft Bone Putty Dbx 10ml [id number] Implanted:Qty : 1 on 04/29/2017 by Ramon Staples MD at [facility] Bone/Tis lillian/Biol ogic N/A: Spine Lumbar [employer] 12/21/2018 [id number] / [id number] / 5.5x40 Screw Implanted:Qty : 6 on 04/29/2017 by Ramon Staples MD at [facility] N/A: Spine Lumbar 07.87252.03 4106 [id number] 6.5x40 Screw Implanted:Qty : 6 on 04/29/2017 by Ramon Staples MD at [facility] N/A: Spine Lumbar 07.46085.07 4106 [id number] 510mm 5.5 Tirod Implanted:Qty : 1 on 04/29/2017 by Ramon Staples MD at [facility] N/A: Spine Lumbar 07.11296.00 4106 [id number] 31mm Crosslink Implanted:Qty : 1 on 04/29/2017 by Ramon Staples MD at [facility] N/A: Spine Lumbar 07.89889.00 4106 [id number] Standard Locking Nut Implanted:Qty : 13 on 04/29/2017 by Ramon Staples MD at [facility] N/A: Spine Lumbar 07.00794.00 4101 [id number] 51-70mm Crosslink Implanted:Qty : 1 on 04/29/2017 by Ramon Staples MD at [facility] N/A: Spine Lumbar 07.64389.00 4 / / [id number] Insurance [place] Advance Directives For more information, please contact: [phone] Documents on File Type Date Recorded Patient [place] Hat Hydraulic Press Operator Expl anation Advance Directives and Living Will 04/28/2017 9:03 PM Healthcare Directive 12-29-13 * Full Code (Latest Code Status on File) Date Activated Date Inactivated Comments 05/05/2017 5:46 PM * Full Code Date Activated Date Inactivated Comments 04/29/2017 2:11 PM 05/05/2017 5:46 PM * Full Code Date Activated Date Inactivated Comments 04/28/2017 5:40 PM 04/29/2017 2:11 PM Care Teams Head Bander And Liner Operator Relationship Specialty Start Date End Date VoteKerwin joyner: [phone] PCP - General Family Practice 04/28/17
--- OUTSIDE RECORDS SUMMARY | 2025-01-29 00:17 | XMS_ITS | Clinical Summary ---
Author Organization [facility] Address [address] [place] [id number] Care Team Providers Care Dancer Or Choreographer Name Role Phone Unavailable Primary Care Provider Unavailabl e Allergies Active Allergy Reactions Criticality Noted Date Comments Bee Venom Protein (Honey Bee) Edema 2019 Medications MULTIVITAMIN TAB take 1 tablet by mouth once daily 0 6 Active CALCIUM 600 600 MG TAB 2 daily 0 6 Active acetaminophen SR (TYLENOL ARTHRITIS) 650 mg Extended-Release tablet Every 8 Hours Active fluticasone (50 mcg per actuation) nasal solution (FLONASE) Inhale 2 Sprays to both nostrils once daily. 16 g 3 Active EPINEPHrine (EpiPen) 0.3 mg/0.3 mL auto-injectorIndic ations:Bee sting allergy Inject as directed for reaction to Bee Sting 2 Each 1 3 Active traZODone (DESYREL) 50 mg tabletIndications: Insomnia, unspecified type Take 1/2 tab at bedtime PRN 45 Tablet 3 4 Active propranoloL (INDERAL) 20 mg tabletIndications: Essential tremor Take 1 Tablet (20 mg) by mouth two times daily. 180 Tablet 3 4 Active citalopram (CELEXA) 10 mg tabletIndications: Anxiety and depression Take 1.5 Tablets (15 mg) by mouth once daily in the morning. 135 Tablet 3 4 Active donepeziL (ARICEPT) 5 mg tabletIndications: MCI (mild cognitive impairment) Take 1 Tablet (5 mg) by mouth at bedtime. 90 Tablet 3 4 Active pravastatin (PRAVACHOL) 40 mg tabletIndications: Hyperlipidemia, unspecified hyperlipidemia type Take 1 tablet by mouth at bedtime. 90 Tablet 2 5 Active furosemide (LASIX) 20 mg tabletIndications: Chronic diastolic CHF (congestive heart failure) (HC) Take 1 Tablet (20 mg) by mouth once daily in the morning. Try to take 1 tablet every other day; if weight and symptoms stable, try every 3rd day. If weight increases go back to best last regimen. 90 Tablet 3 5 Active losartan (COZAAR) 25 mg tabletIndications: Chronic diastolic CHF (congestive heart failure) (HC) Take 0.5 Tablets (12.5 mg) by mouth two times daily. 90 Tablet 5 Active busPIRone 5 mg tabletIndications: Anxiety Take 1/2 tablet by mouth twice daily. Dose reduction. (Patient requests that the tablets are split at the pharmacy). 90 Tablet 1 5 Active Active Problems Problem Noted Date Diagnosed Date Chronic diastolic CHF (congestive heart failure) 08/25/2024 HTN (hypertension) 08/25/2024 Stage 3b chronic kidney disease 08/05/2024 Collagenous colitis 04/06/2024 Primary osteoarthritis of right knee 03/11/2024 Overview (03/25/2024): Mar 2024: Cortisone injection. Consider Medial approach for next injection. Only 40% pain relief at 2 weeks. 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 Court going to physical therapy for back /leg symptoms September 2018. Lumbar stenosis 04/28/2017 Chronic kidney disease, stage III (moderate) 08/2016 Balance problem 01/22/2017 Dysthymia 05/02/2016 Overview (05/02/2016): On citalopram Benign positional vertigo 10/20/2012 Stricture and stenosis of esophagus 02/29/2012 Overview (02/29/2012): EGD 01/2012 stricture dilated ACP (advance care planning) 01/28/2012 Overview (01/28/2012): She will send copy from home Osteopenia 08/01/2009 Assessment & Plan (10/12/2010 10:32 AM CDT): See [place] 2009 Dupuytren's contracture 07/30/2008 Overview (07/30/2008): Left hand, Unspecified essential hypertension Other and unspecified hyperlipidemia Other and unspecified disc disorder of lumbar re gion Resolved Problems Problem Noted Date Diagnosed Date Resolved Date S/P repair of ventral hernia 01/25/2022 11/12/2023 Closed fracture of thoracic spine with lesion of spinal cord 11/22/2020 08/30/2021 S/P colon resection 05/08/2016 05/08/20 16 Depressive disorder, not elsewhere classified 09/05/19 06 08/01/2009 Overview (09/04/2005): treated with celexa Obstructive hydrocephalus operated 201211/22/2020 Overview (01/21/2019): Normal pressure hydrocephalus treated with shunt May 2001, Dr Jiang Other screening mammogram Overview (04/24/2016): mammogram 06/10/2007, 07/30/08, Jul 2009, 10/12/2010,01/28/2012 , 02/10/2013 , 03/09/2014 04/22/15, 04/24/2016 Routine gynecological examination 11/12/2023 Overview (03/09/2014): [id number] 04/12/2006 pap performed pelvic exam 06/10/2007, pelvic exam 07/30/2008 , 10/12/2010 , 02/10/2013 no pap No symptoms 03/09/2014 so no pelvic exam Personal history of colonic polyps operated Dr Velez 2016 11/12/2023 Overview (12/25/2017): colonoscopy 2005, hyperplastic polyp, repeat in 10 years, Dr Angiuano Colonoscopy 03/2016 large unresectable polyp recommend advance colonoscopy resection at [facility] Colonoscopy 11/2017 collagenous colitis, try entocort, no follow up needed Immunizations Immunization Administration Dates Next Due COVID-19 VACCINE SPIKEVAX (M ODERNA 50MCG/0.5ML) 12YO+ PFS 04/06/2024 COVID-19 vaccine (Pfizer-Bio NTech 30mcg/0.3mL) 12YO+ BIVALENT PF, MDV 04/02/2022 COVID-19 vaccine (Pfizer-Bio NTech 30mcg/0.3mL) 12YO+ TALON-SUCROSE PF, MDV 10/11/2021 COVID-19 vaccine (Pfizer-Bio NTech 30mcg/0.3mL) PF, MDV 09/03/2020,08/13/2020 INFLUENZA, IIV3 PF (AGE >= 6 MO) 02/24/2010 Influenza A (H1N1), Inactiva rosemarie (Age >=3 Years) 05/31/2009 Influenza RIV4 (Age 18+ Year s) PRESERV FREE 04/24/2019 Influenza, High-dose Inactivated 016,04/22/2015,03/09/2014,05/06 Influenza, High-dose Quadriv alent Inactivated 04/02/2023 Influenza, IIV3 (Age >=3 years) 04/09/20 10,04/14/2009,04/14/2008,04/14,04/12/2006 Influenza, Inactivated AIIV4 (Age 65+ Years) Preserv Free 04/02/2022,03/08/2021,03/23/2020 Influenza, Inactivated IIV3 (Age 65+ Years) Preserv Free 04/06/2024,04/26/2018,03/17/2018,03/22 Pneumococcal Poly,23-Valent (Pneumovax) 01/28/2012,04/24/2001 Pneumococcal conj 13-Valent (Prevnar 13) 05/09/2017,04/22/2015 RSV, Recombinant ADJ Reconst ituted (Arexvy 120MCG/0.5mL) 05/17/2023 Td (Age >=7 Years) 01/05/2015 Td, Preservative Free (age >= 7 Years) 5 Zoster (Shingrix-RZV, recombinant) 12/11/2018,,09/23/2018 Zoster (Zostavax-ZVL, live) 12/10/2007 Family History Medical History Relation Name Comments Anesthesia Malignant Hyperthermia No Family History Cancer-breast No Family History Cancer-ovarian No Family History Relation Name Status Comments Brother (Age 34) lost at se a Father (Age 100) born 1909 Mother (Age 99) born 1909 Social History Tobacco Use Types Packs/Day Years Used Date Smoking Tobacco: Former Cigarettes 0.5 6 0 07/01/1979 - 07/01/1985 Smokeless Tobacco: Never Tobacco Cessation:Counseling Given: Yes Alcohol Use Standard Drinks/Week Comments No 0 (1 standard drink = 0.6 oz pur e alcohol) PHQ-2 Answer Date Recorded PHQ-2 TOTAL SCORE 0 01/22/2024 Social Connections Answer Date Recorded Do you often feel lonely or isolated from those around you? 0 04/06/2024 Financial Resource Strain Answer Date R ecorded Difficulty of Paying Living Expenses 3 04/06/2024 Difficulty of Paying Living Expenses Not on file 04/06/2024 Food Insecurity Answer Date Recorded Do you worry your food will run out before you are able to buy more? 1 04/06/2024 Transportation Needs Answer Date Record ed Does lack of transportation keep you from medica l appointments? 1 04/06/2024 Does lack of transportation keep you from work, meetings or getting things that you need? 1 04/06/2024 Housing Stability Answer Date Recorded What is your housing situation today? 1 04/06/2024 Utilities Answer Date Recorded Do you have trouble paying f or utilities (for example, heat, electricity, water, phone)? 1 04/06/2024 Comments No Sex and Gender Information Value Date Recorded Sex Assigned at Female 02/21/2020 12:30 PM CDT Legal Sex Female 5:39 AM GIS MAPPING TECHNICIAN Gender Identity Female 02/21/2020 12:31 PM CDT Sexual Orientation Straight 02/21/2020 12 :31 PM CDT Occupation Industry Job Start Date Job End Date volunteer Not on file Not on file Not on file Obstetrics History Last Filed Vital Signs Vital Sign Reading Time Taken Comments Blood Pressure 177/72 08/25/2024 11:32 AM GIS MAPPING TECHNICIAN Pulse 61 08/25/2024 11:32 AM GIS MAPPING TECHNICIAN Temperature 36.4 C (97.6 F) 11/05/2023 2:28 PM CDT Respiratory Rate 14 05/10/2016 8:00 AM GIS MAPPING TECHNICIAN Oxygen Saturation 99% 08/25/2024 11:32 AM GIS MAPPING TECHNICIAN Inhaled Oxygen Concentration - - Weight 64.2 kg (141 lb 8 oz) 04/06/2024 9:55 AM CDT Height 147.3 cm (4' 10) 03/16/2024 1:32 PM CDT Body Mass Index 29.57 03/16/2024 1:32 PM CDT Plan of Treatment Health Maintenance Due Date Last Done Comments COVID-19 vaccine series ( season) 2024 04/06/2024, 04/02/2023, 04/02/2022, Additional history exists Tetanus booster 01/05/2025 01/05/2015, 07/0 01/2015, 07/30/2008 (Declined) Depression screening for age 12+ 01/21/2025 01/22/2024, 07/31/2023, 07/31/2022, Additional history exists Medicare Wellness for age 65+ 01/22/2025 01/22/2024, 07/31/2022, 04/24/2016, Additional history exists Influenza Vaccine (#1) 2025 , 04/02/2022, 03/08/2021, Additional history exists BMI (ht and wt on same day) for age 18+ 03/16/2025 03/16/2024, 01/22/2024, 10/01/2023, Additional history exists Pneumococcal series for age 50+ Completed 05/09/2017, 04/22/2015, 01/28/2012, Additional history exists DEXA/DXA scan for age 65+ Completed 10/28/2018, 07/2009 Zoster (shingles) series for age 50+ Completed 12/11/2018, 09/23/2018, 09/23/2018, Additional history exists RSV vaccine for adults or Completed 05/17/2023 Hepatitis B series for 19+ Aged Out N o longer eligible based on patient's age to complete this topic Procedures Procedure Name Priority Date/Time Associated Diagnosis Comments XR DXA BONE DENSITY 1 SITE AXIAL AND 1 SITE PERIPHERAL Routine 10/28/2018 2:04 PM CDT Menopause from Last 3 Months or Most Recently Relevant to Health Maintenance Results * (ABNORMAL) XR DXA BONE DENSITY 1 SITE AXIAL AND 1 SITE PERIPHERAL (10/28/2018 2:04 PM CDT) Anatomical Region Laterality Modality LUMBAR SPINE Other Narrative 10/31/2018 5:06 PM CDT Please see scanned document for results of this study. us Kerwin Quiñones MD DEXA Final Re sult from Last 3 Months or Most Recently Relevant to Health Maintenance Insurance MEDICARE PB ONLY MEDICARE PART A HB ONLY [facility] MEDICARE PART B HB ONLY Advance Directives Documents on File Type Date Recorded Patient Quality Assurance Coordinator Expl shweta BUSTILLOS 12/27/2020 * Full Code (Latest Code Status on File) Date Activated Date Inactivated Comments 05/07/2016 8:43 PM 05/10/2016 3:05 PM * Full Code Date Activated Date Inactivated Comments 05/07/2016 2:33 PM 05/07/2016 8:43 PM
== END 2025-01-28 09:04 | disposition home or self-care (01) ==
LOC: NPINS 09:03
PROVIDERS: PCP Student in an Organized Health Care Education/Training Program; Referring Provider Nurse Practitioner Gerontology; Visit Provider Nurse Practitioner Gerontology
DX: R41.0 Disorientation, unspecified (principal); N39.0 Urinary tract infection, site not specified
CPT/HCPCS: 81001; 81003; 87086

== ENCOUNTER 2025-06-30 07:59 | Outpatient (REF) | payer MEDICARE, BC, SELFPAY ==
[2025-06-30 09:04] LABS: Appearance Urine Clear (Clear)
--- OUTSIDE RECORDS SUMMARY | 2025-07-01 00:13 | XMS_ITS | Clinical Summary ---
Author Organization [place] Address [address] [place] [id number] Care Team Providers Care Hvac Installer Name Role Phone RonnieteKerwin joyner Primary Care Provider [phone] Allergies Active AllergyReactionsCriticalityNoted DateCommentsBee ZjhhvBfhzhhhz63/25/2017 Medications MedicationSigDispense QuantityRefillsLast FilledStart DateEnd DateStatus Multiple Vitamins-Minerals (CENTRUM PO) Take 1 tablet by mouth dailyActive multivitamin (OCUVITE) TABS Take 1 tablet by mouth dailyActive EPINEPHrine (EPIPEN IJ) Inject as directed.Active TRAZODONE HCL PO Take 50-100 mg by mouth At Bedtime (2 x 50 mg = 100 mg dose)Active CALCIUM PO Take 1,200 mg by mouth dailyActive VITAMIN D, CHOLECALCIFEROL, PO Take 1,000 Units by mouth dailyActive PRAVASTATIN SODIUM PO Take 40 mg by mouth every evening (0.5 x 80 mg = 40 mg dose)Active triamterene-hydrochlorothiazide (MAXZIDE) 75-50 MG per tablet Take 1 tablet by mouth dailyActive Acetaminophen (TYLENOL PO) Take 500-1,000 mg by mouth every 6 hours as neededActive calcitonin, salmon, (MIACALCIN) 200 UNIT/ACT nasal spray Viola 1 spray into one nostril alternating nostrils daily Alternate nostril each day.Active OMEPRAZOLE PO Take 20 mg by mouth dailyActive Propranolol HCl (INDERAL PO) Take 20 mg by mouth 2 times daily as needed for other (Tremors)Active Citalopram Hydrobromide (CELEXA PO) Take 10 mg by mouth dailyActive TIZANIDINE HCL PO Take 4 mg by mouth 2 times daily as needed for muscle spasmsActive calcium carbonate (TUMS) 500 MG chewable tablet Indications:Spinal stenosis of lumbar region, unspecified whether neurogenic claudication presentTake 1 tablet (500 mg) by mouth daily 50 tablet 05/05/2017Active Additional Information Patient not taking.Reported on 01/25/2021 ondansetron (ZOFRAN-ODT) 4 MG ODT tab Indications:Spinal stenosis of lumbar region, unspecified whether neurogenic claudication present,Open fracture of thoracic vertebra with spinal cord lesion, initial encounter (H)Take 1 tablet (4 mg) by mouth every 6 hours as needed for nausea or vomiting 50 tablet 05/05/2017Active Additional Information Patient not taking.Reported on 05/26/2018 lidocaine (LIDODERM) 5 % Patch Indications:Spinal stenosis of lumbar region, unspecified whether neurogenic claudication present,Open fracture of thoracic vertebra with spinal cord lesion, initial encounter (H)Place 2 patches onto the skin every 24 hours For back pain 60 patch 05/05/2017Active Additional Information Patient not taking.Reported on 05/26/2018 bisacodyl (DULCOLAX) 5 MG EC tablet Indications:Spinal stenosis of lumbar region, unspecified whether neurogenic claudication present,Open fracture of thoracic vertebra with spinal cord lesion, initial encounter (H)Take 2 tablets (10 mg) by mouth daily as needed for constipation 30 tablet 05/05/2017Active Additional Information Patient not taking.Reported on 05/26/2018 docusate sodium (COLACE) 100 MG capsule Indications:Spinal stenosis of lumbar region, unspecified whether neurogenic claudication present,Open fracture of thoracic vertebra with spinal cord lesion, initial encounter (H)Take 1 capsule (100 mg) by mouth 2 times daily 60 capsule 05/05/2017Active Additional Information Patient not taking.Reported on 05/26/2018 magnesium hydroxide (MILK OF MAGNESIA) 400 MG/5ML suspension Indications:Spinal stenosis of lumbar region, unspecified whether neurogenic claudication present,Open fracture of thoracic vertebra with spinal cord lesion, initial encounter (H)Take 30 mLs by mouth daily as needed for constipation 105 mL 05/05/2017Active Additional Information Patient not taking.Reported on 05/26/2018 polyethylene glycol (MIRALAX/GLYCOLAX) Packet Indications:Spinal stenosis of lumbar region, unspecified whether neurogenic claudication present,Open fracture of thoracic vertebra with spinal cord lesion, initial encounter (H)Take 17 g by mouth 2 times daily as needed (constipation) 7 packet 05/05/2017Active Additional Information Patient not taking.Reported on 05/26/2018 senna-docusate (SENOKOT-S;PERICOLACE) 8.6-50 MG per tablet Indications:Spinal stenosis of lumbar region, unspecified whether neurogenic claudication present,Open fracture of thoracic vertebra with spinal cord lesion, initial encounter (H)Take 1 tablet by mouth 2 times daily as needed for constipation 100 tablet 05/05/2017Active Additional Information Patient not taking.Reported on 05/26/2018 tamsulosin (FLOMAX) 0.4 MG capsule Indications:Spinal stenosis of lumbar region, unspecified whether neurogenic claudication present,Open fracture of thoracic vertebra with spinal cord lesion, initial encounter (H)Take 1 capsule (0.4 mg) by mouth daily 60 capsule 05/05/2017Active Additional Information Patient not taking.Reported on 05/26/2018 carbamide peroxide (DEBROX) 6.5 % otic solution Indications:Spinal stenosis of lumbar region, unspecified whether neurogenic claudication presentPlace 3 drops into both ears daily as needed for other (for wax build up as needed, no more than 3 consecutive days)05/05/2017Active Additional Information Patient not taking.Reported on 05/26/2018 oxyCODONE IR (ROXICODONE) 5 MG tablet Indications:Spinal stenosis of lumbar region, unspecified whether neurogenic claudication present,Open fracture of thoracic vertebra with spinal cord lesion, initial encounter (H)Take 1 tablet (5 mg) by mouth every 3 hours as needed for moderate to severe pain 60 tablet 05/06/2017Active Additional Information Patient not taking.Reported on 05/26/2018 furosemide (LASIX) 20 MG tablet Take 20 mg by mouth dailyActive fluticasone (FLONASE) 50 MCG/ACT nasal spray Viola 2 sprays into both nostrils dailyActive Active Problems ProblemNoted DateDiagnosed DateFracture of thoracic spine with cord lesion 04/29/2017Lumbar phmuurcd13/29/2017 Social History Tobacco UseTypesPacks/DayYears UsedDateSmoking Tobacco: FormerSmokeless Tobacco: Never Tobacco Cessation:Counseling Given: No Comments:former smoker Alcohol UseStandard Drinks/WeekCommentsNot Asked0 (1 standard drink = 0.6 oz pure alcohol)Adolescent EducationAnswerDate RecordedGetting School Help Needed Not on file3CommentsNoSex and Gender InformationValueDate RecordedSex Assigned at BirthNot on fileLegal ZbfBsawqd91/04/2012 3:15 AM FOOD SERVICE STEWARD Gender IdentityNot on fileSexual OrientationNot on file Last Filed Vital Signs Vital SignReadingTime TakenCommentsBlood Coeqvfpo515/7408 2:45 PM CDT Vpwno3015/30/2021 2:45 PM WGYQdeuatmpcma56.5 ??C (97.7 ??F)01/25/2021 2:17 PM CDTRespiratory Sufw065607/06/2016 11:29 AM CSTOxygen Cyrljtqqpp80%02/27/2021 2:45 PM CDTInhaled Oxygen Concentration--Aqaleb21.6 kg (160 lb)02/27/2021 2:45 PM CDT Dsmoat748.4 cm (5')02/27/2021 2:45 PM CDTBody Mass Index31.2508 2:45 PM CDT Plan of Treatment Not on file Medical Devices ImplantedTypeAreaManufacturerDevice IdentifierShelf Expiration DateModel / Serial / LotGraft Bone Infuse Bmp Lg [id number] Implanted:Qty: 1 on 04/29/2017 by Ramon Staples MD at [facility]/Tissue/BiologicN/A: Spine LumbarMEDTRONIC, INC-DANEK 10/29/[id number] / / [id number] Bone Putty Dbx 10ml [id number] Implanted:Qty: 1 on 04/29/2017 by Ramon Staples MD at [facility]/Tissue/BiologicN/A: Spine LumbarMUSCULOSKELETAL AHUJA 12/21/0314107695 / [id number] / 5.5x40 Screw Implanted:Qty: 6 [facility] 04[facility]29/[facility] [id number] / / [id number] Screw Implanted:Qty: 6 on 04/29/2017 [facility]: Spine Umylpm74.18724.074 / / [id number] 5.5 Tirod Implanted:Qty: 1 on 04/29/2017 [facility]: Spine Rxetgv91.34507.003 / / [id number] Crosslink Implanted:Qty: 1 on 04/29/2017 [facility]: Spine [id number] / / [id number] Locking Nut Implanted:Qty: 13 on 04/29/2017 [facility]: Spine Dejtwe93.97004.001 / / [id number] Crosslink Implanted:Qty: 1 on 04/29/2017 [facility]: Spine Swlnrg53.40705.004 / / [id number] Insurance Advance Directives For more information, please contact: [phone] TypeDate RecordedPatient RepresentativeExplanationAdvance Directives and Living Will04/28/2017 9:03 PMHealthcare Directive 12-29-13 * Full Code (Latest Code Status on File) Date ActivatedDate KglnymhraymTworwzos14/5/2017 5:46 PM * Full Code Date ActivatedDate LnxiiosxdltSucfruhg44/30/2017 2:11 PM11 5:46 PM * Full Code Date ActivatedDate IqjtllmhqdjGpncudhm34/29/2017 5:40 PM10 2:11 PM Care Teams Team MemberRelationshipSpecialtyStart DateEnd Date Votel, Kerwin ROSALES: [id number] PCP - GeneralFamily Nqvqjvwd12/29/17
--- OUTSIDE RECORDS SUMMARY | 2025-07-01 00:13 | XMS_ITS | Clinical Summary ---
Author Organization [facility] Address [address] [place] [id number] Care Team Providers Care Prekindergarten Teacher Name Role Phone Unavailable Primary Care Provider Unavailabl e Allergies Active AllergyReactionsCriticalityNoted DateCommentsBee Venom Protein (Honey Bee)Edema03/11/2020 Medications MedicationSigDispense QuantityRefillsLast FilledStart DateEnd DateStatus MULTIVITAMIN TAB take 1 tablet by mouth once [id number] CALCIUM 600 600 MG TAB 2 [id number] acetaminophen SR (TYLENOL ARTHRITIS) 650 mg Extended-Release tablet Every 8 HoursActive fluticasone (50 mcg per actuation) nasal solution (FLONASE) Inhale 2 Sprays to both nostrils once daily. 16 g 07/31/2022ctive EPINEPHrine (EpiPen) 0.3 mg/0.3 mL auto-injector Indications:Bee sting allergyInject as directed for reaction to Bee Sting 2 Each ctive traZODone (DESYREL) 50 mg tablet Indications:Insomnia, unspecified typeTake 1/2 tab at bedtime PRN 45 Tablet ctive citalopram (CELEXA) 10 mg tablet Indications:Anxiety and depressionTake 1.5 Tablets (15 mg) by mouth once daily in the morning. 135 Tablet ctive donepeziL (ARICEPT) 5 mg tablet Indications:MCI (mild cognitive impairment)Take 1 Tablet (5 mg) by mouth at bedtime. 90 Tablet 309/16/2024Active pravastatin (PRAVACHOL) 40 mg tablet Indications:Hyperlipidemia, unspecified hyperlipidemia typeTake 1 tablet by mouth at bedtime. 90 Tablet 5Active furosemide (LASIX) 20 mg tablet Indications:Chronic diastolic CHF (congestive heart failure) (HC)Take 1 Tablet (20 mg) by mouth once daily in the morning. Try to take 1 tablet every other day; if weight and symptoms stable, try every 3rd day. If weight increases go back to best last regimen. 90 Tablet 5Active losartan (COZAAR) 25 mg tablet Indications:Chronic diastolic CHF (congestive heart failure) (HC)Take 0.5 Tablets (12.5 mg) by mouth two times daily. 90 Tablet 5Active busPIRone 5 mg tablet Indications:AnxietyTake 1/2 tablet by mouth twice daily. Dose reduction. (Patient requests that the tablets are split at the pharmacy). 90 Tablet 5Active nystatin 100,000 unit/gram cream Apply 100,000 units topically to affected area(s) two times daily.09/23/2024 Active loperamide (IMODIUM) 2 mg capsule Take 2 mg by mouth.06/02/2025tive LORATADINE ORAL Take 10 mg by mouth once daily.Active dextran 70-hypromellose 0.1-0.3 % ophthalmic solution Place 2 Drops into the eye(s) every 2 hours if needed (dry eyes).Active mv-min/FA/vit K/lutein/zeaxant (PRESERVISION AREDS 2 PLUS MV ORAL) Take 1 Capsule by mouth once daily.Active diclofenac topical (VOLTAREN) 1 % gel Indications:Primary osteoarthritis of right kneeApply 2 g topically to affected area(s) four times daily.5Active propranoloL 60 mg tablet Indications:Essential tremorTake 0.5 Tablets (30 mg) by mouth two times daily. 06/17/2025tive propranoloL (INDERAL) 20 mg tablet Indications:Essential tremorTake 1 Tablet (20 mg) by mouth two times daily. 180 Tablet Discontinued(*Medication adjustment)Hospital, Clinic, or Other Facility Administered MedicationOrdered DoseRouteFrequencyStart DateEnd DateStatus betamethasone acet,sod phos 6 mg injection (CELESTONE SOLUSPAN) Indications:Primary osteoarthritis of right knee6 mgIArticONE TIME06/15/2025 06/15/2025Ended Active Problems ProblemNoted DateDiagnosed DateChronic diastolic CHF (congestive heart failure) 08/25/2024HTN (hypertension)08/25/2024Stage 3b chronic kidney irdakvb7608/05/2024 Collagenous xysetgg2904/06/2024rimary osteoarthritis of right knee03/11/2024 Overview (03/25/2024): Mar 2024: Cortisone injection. Consider Medial approach for next injection. Only 40% pain relief at 2 weeks. Mild cognitive impairment (MOCA 21/30)11/12/2023HF (congestive heart failure) 01/25/2022ulmonary edema01/25/2022pigelian iggqij4501/25/2022VP (ventriculoperitoneal) shunt fcbbwe1701/25/2022 Overview (04/12/2025): 06/16/2003 INFORMATICA Shunt placement, R-sided, using a Strata programmable valve set at 1.5 station - Dr. Jiang 05/16/2004 Strata 1.5 station 01/09/2024 Strata 1.0 station ( seen on Shunt Series discussed at telemedicine visit by Dr. Johnston and Yumiko Balderas CNP , no intervention was felt to be needed ) Idiopathic normal pressure kbtwqtdqryumm16/02/2022 Overview (08/30/2021): INFORMATICA shunt Lateral pain of left hip09/22/2018 Overview (09/23/2018): August 2018: Epidural steroid injection: no lidocaine benefit, but some delayed benefit. Court going to physical therapy for back /leg symptoms September 2018. 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 Overview (07/30/2008): Left hand, Unspecified essential hypertensionOther and unspecified hyperlipidemiaOther and unspecified disc disorder of lumbar region Resolved Problems ProblemNoted DateDiagnosed DateResolved DateS/P repair of ventral hernia /losed fracture of thoracic spine with lesion of spinal cord //P colon qvxnuisfw63Depressive disorder, not elsewhere pbxbsitkeo29 Overview (09/04/2005): treated with celexa Obstructive hydrocephalus operated Overview (01/21/2019): Normal pressure hydrocephalus treated with shunt May 2001, Dr Jiang Other screening kqxbnmxcu85/14/2024 Overview (04/24/2016): mammogram 06/10/2007, 07/30/08, Jul 2009, 10/12/2010,01/28/2012 , 02/10/2013 , 03/09/2014 04/22/15, 04/24/2016 Routine gynecological uitpkgnsbll02/14/2024 Overview (03/09/2014): R1D0Xf1 04/12/2006 pap performed pelvic exam 06/10/2007, pelvic exam 07/30/2008 , 10/12/2010 , 02/10/2013 no pap No symptoms 03/09/2014 so no pelvic exam Personal history of colonic polyps operated Dr Velez Overview (12/25/2017): colonoscopy 2005, hyperplastic polyp, repeat in 10 years, Dr Anguiano Colonoscopy 03/2016 large unresectable polyp recommend advance colonoscopy resection at [facility] Colonoscopy 11/2017 collagenous colitis, try entocort, no follow up needed Encounters DateTypeDepartmentCare UspiIkxtmoagupz07/16/2025 9:55 AM CSTProcedure Only [facility] [address] [place] [address] Stanley Tomas MD Musculoskeletal Problem (Follow-up RIGHT k...06/15/20256420Wavcyd14/13/2025Telephone [facility] [address] [place] [phone] Marisol Chiu RN Follow Up04/09/2025Telephone [facility] [address] [place] [phone] Bon Johnston, [facility] Concernsfrom Last 3 Months Immunizations ImmunizationAdministration DatesNext DueCOVID-19 VACCINE SPIKEVAX (MODERNA 50MCG/0.5ML) 12YO+ PFS4COVID-19 vaccine (Pfizer-BioNTech 30mcg/0.3mL) 12YO+ BIVALENT PF, MDV12COVID-19 vaccine (Pfizer-BioNTech 30mcg/0.3mL) 12YO+ TALON-SUCROSE PF, MDV2COVID-19 vaccine (Pfizer-BioNTech 30mcg/0.3mL) PF, MDV09/03/2020,08/13/2020INFLUENZA, IIV3 PF (AGE >= 6 MO) 02/24/2010Influenza A (H1N1), Inactivated (Age >=3 Years)05/31/2009Influenza RIV4 (Age 18+ Years) PRESERV FREE04/24/2019Influenza, High-dose Inactivated 04/24/2016,04/22/2015,03/09/2014,05/06/2012Influenza, High-dose Quadrivalent Jkwsjbsdgtx27/03/2023Influenza, IIV3 (Age >=3 years)04/09/2010,04/14/2009, 04/14/2008,04/14/2007,04/12/2006Influenza, Inactivated AIIV4 (Age 65+ Years) Preserv Free04/02/2022,03/08/2021,03/23/2020Influenza, Inactivated IIV3 (Age 65+ Years) Preserv Free04/06/2024,04/26/2018,03/17/2018,03/22/2017Pneumococcal Poly,23-Valent (Pneumovax)01/28/2012,04/24/2001Pneumococcal conj 13-Valent (Prevnar 13)05/09/2017,04/22/2015RSV, Recombinant ADJ Reconstituted (Arexvy 120MCG/0.5mL)05/17/2023Td (Age >=7 Years)01/05/2015Td, Preservative Free (age >= 7 Years)01/05/2015Zoster (Shingrix-RZV, recombinant)12/11/2018,09/23/2018, 09/23/2018Zoster (Zostavax-ZVL, live)12/10/2007 Family History Medical HistoryRelationNameCommentsAnesthesia Malignant HyperthermiaNo Family HistoryCancer-breastNo Family HistoryCancer-ovarianNo Family HistoryRelationName StatusCommentsBrotherDeceased (Age 34)lost at seaFatherDeceased (Age 100)born 1911MotherDeceased (Age 99)born 1911 Social History Tobacco UseTypesPacks/DayYears UsedDateSmoking Tobacco: FormerCigarettes0.56 07/01/1979 - 07/01/1985Smokeless Tobacco: Never Tobacco Cessation:Counseling Given: Yes Alcohol UseStandard Drinks/WeekCommentsNo0 (1 standard drink = 0.6 oz pure alcohol)PHQ-2AnswerDate RecordedPHQ-2 TOTAL HFKOK500Social Connections AnswerDate RecordedDo you often feel lonely or isolated from those around you?0 04/06/2024lcohol UseAnswerDate RecordedHow often do you have a drink containing alcohol?verage Number of DrinksNot on file06/15/2025Frequency of Binge DrinkingNot on file06/15/2025Financial Resource StrainAnswerDate Recorded Difficulty of Paying Living Kwovdizt076/07/2024Difficulty of Paying Living ExpensesNot on file04/06/2024Food InsecurityAnswerDate RecordedDo you worry your food will run out before you are able to buy more?Transportation NeedsAnswerDate RecordedDoes lack of transportation keep you from medical appointments?oes lack of transportation keep you from work, meetings or getting things that you need?Housing StabilityAnswerDate Recorded What is your housing situation today?UtilitiesAnswerDate RecordedDo you have trouble paying for utilities (for example, heat, electricity, water, phone)?regnantCommentsNoSex and Gender InformationValueDate Recorded Sex Assigned at LozmdPiswsg03/23/2020 12:30 PM CDTLegal NukSjzaux73/14/2013 5:39 AM CSTGender TvhsavfgXjlgqe54/23/2020 12:31 PM CDTSexual OrientationStraight 02/21/2020 12:31 PM CDTOccupationIndustryJob Start DateJob End DatevolunteerNot on fileNot on fileNot on file Last Filed Vital Signs Vital SignReadingTime TakenCommentsBlood Yhbnsptp633/7306/15/2025 9:56 AM [employer] Pmbnj354706/15/2025 9:56 AM HBVUduhiocjnum19.4 ??C (97.6 ??F)11/05/2023 2:28 PM CDTRespiratory Epcc321607/10/2015 8:00 AM CSTOxygen Lgkxymtxbn25%06/15/2025 9:56 AM CSTInhaled Oxygen Concentration--Iiudsz42.2 kg (141 lb 8 oz)04/06/2024 9:55 AM QTKPenaiz817.3 cm (4' 10)03/16/2024 1:32 PM CDTBody Mass Index29.57 03/16/2024 1:32 PM CDT Plan of Treatment DateTypeDepartmentCare Team (Latest Contact Info)Ycrhuokmcke47/03/2026 1:30 PM CSTOffice Visit [facility] [address] [place] [phone] Yash Montenegro MD [address] [facility] [address] [place] [address] Health MaintenanceDue DateLast DoneCommentsTetanus ttvytjl56/08/25706001/05/2015, 01/05/2015, 07/30/2008 (Declined)Depression screening for age 12+01/21/2025 01/22/2024, 07/31/2023, 07/31/2022, Additional history existsMedicare Wellness for age 65+5001/22/2024, 07/31/2022, 04/24/2016, Additional history existsInfluenza Vaccine (#1)/12/2023, 04/02/2022, 03/08/2021, Additional history existsBMI (ht and wt on same day) for age 18+03/16/2025 03/16/2024, 01/22/2024, 10/01/2023, Additional history existsCOVID-19 vaccine series (2024- season)61, 04/06/2024, 04/02/2023, Additional history existsPneumococcal series for age 50+Igobrmwfy24/09/2017, 04/22/2015, 01/28/2012, Additional history existsDEXA/DXA scan for age 65+ Rklgdklig00/30/2019, 08/01/2009Zoster (shingles) series for age 50+Completed 12/11/2018, 09/23/2018, 09/23/2018, Additional history existsRSV vaccine for adults or fbzbpalqnJadwufyvl07/17/2023Hepatitis B series for 19+Aged OutNo longer eligible based on patient's age to complete this topic Procedures Procedure NamePriorityDate/TimeAssociated DiagnosisCommentsXR DXA BONE DENSITY 1 SITE AXIAL AND 1 SITE QVBTWCUMDRRjonqgz15/30/2019 2:04 PM CDT Menopause from Last 3 Months or Most Recently Relevant to Health Maintenance Results * (ABNORMAL) XR DXA BONE DENSITY 1 SITE AXIAL AND 1 SITE PERIPHERAL (10/28/2018 2:04 PM CDT)Anatomical RegionLateralityModalityLUMBAR SPINEOtherSpecimen (Source)Anatomical Location / LateralityCollection Method / VolumeCollection TimeReceived Time Narrative 10/31/2018 5:06 PM CDT Please see scanned document for results of this study. Authorizing ProviderResult TypeResult StatusWilliasalvador Trujilloteanya MDDEXAFinal Result from Last 3 Months or Most Recently Relevant to Health Maintenance Insurance * Guarantor: Pily Sutherland TypeRelation to PatientDate of BirthPhone Billing AddressPersonal/KxqbppDcov1938 [address] [phone] Advance Directives TypeDate RecordedPatient RepresentativeExplanationPOLST12/27/2020 * Full Code (Latest Code Status on File) Date ActivatedDate NmufopuzjcvUjtlmscy29/7/2016 8:43 PM05/10/2016 3:05 PM * Full Code Date ActivatedDate VefdrzbqmobCjlkugxt97/7/2016 2:33 PM05/07/2016 8:43 PM
== END 2025-06-30 08:00 | disposition home or self-care (01) ==
LOC: NPINS 07:59
PROVIDERS: PCP Student in an Organized Health Care Education/Training Program; Visit Provider Nurse Practitioner Gerontology
DX: N39.0 Urinary tract infection, site not specified (principal)
CPT/HCPCS: 81001; 81003; 87086